=== PATIENT | female | born 1955 | race Caucasian/White ===

== ENCOUNTER 2018-05-17 17:43 | Outpatient (REF) | payer OTHER, SELFPAY ==
--- NOTE | 2018-05-17 16:40 | PAPFT_PTH ---
PATIENT: Promise Phelps LOC: [facility] U#:[id number] AGE/SX: 62/F ROOM: RE05/17/[address]: Dillon Leyva DO : 1955 BED: DIS: 05/17/2018 SPEC #: [id number] RECD: 05/20/18 12:55 STATUS: KELLY REEduardo #: [id number] DAO: 05/17/18 16:[address]: Dillon Leyva DEPT: [facility] Cytology RECD BY: Arleen Sahu Tissues: 1 - CX/ENDOCX FOR PAP SMEARS Procedures: PAP THIN PREP/UVM Screening HPV DNA PROBE Comments: [id number]
== END 2018-05-17 18:03 ==
LOC: LBN 17:43
PROVIDERS: PCP Emergency Medicine; Visit Provider Emergency Medicine
DX: Z12.4 Encounter for screening for malignant neoplasm of cervix (principal); Z11.51 Encounter for screening for human papillomavirus (HPV)
CPT/HCPCS: 88142; 87624

== ENCOUNTER 2018-07-30 09:00 | Outpatient (CLI) | payer OTHER, SELFPAY ==
[2018-07-30 11:27] LABS: HGB 14.4 g/dL (12.0-15.5); Mean Corp. HGB Concentration 33.5 g/dL (32.0-36.0); Mean Corpuscular Hemoglobin 30.7 pg (27.0-33.0); Mean Corpuscular Volume 91.7 fL (80-95); Mean Platelet Volume 10.5 fL (8.0-11.0); Platelet Count 240 x1000/uL (130-400); RBC 4.69 m/cumm (4.00-5.20); RBC Distribution Width 12.4 % (11.7-14.6); White Blood Cell Count 4.34 k/cumm (4.4-10.8)
[2018-07-30 12:38] LABS: BUN 15 mg/dL (7-18); CREATININE 0.69 mg/dL (0.55-1.02); Calcium 9.4 mg/dL (8.5-10.1); Chloride 103 mmol/L (98-107); Glucose 99 mg/dL (70-100); Potassium 4.6 mmol/L (3.5-5.1); Sodium 141 mmol/L (136-145)
== END 2018-07-30 09:20 ==
PROVIDERS: PCP Emergency Medicine; Visit Provider Family Medicine
DX: Z01.818 Encounter for other preprocedural examination (principal)
CPT/HCPCS: 36415; 80048; 85027

== ENCOUNTER 2019-12-19 11:35 | Observation (INO) | payer OTHER, SELFPAY ==
[2019-12-19] VITALS (42 sets, daily range): BP systolic 113–161; BP diastolic 68–98; PULSE 57–126; RESP 8–23; TEMP 36–36.5; O2SAT 95–100
--- NOTE | 2019-12-19 11:30 | RT.EKG_ITS ---
APPROVED REPORT Exam: Resting ECG Patient Location: E HR:66 bpm ECG Measurements Heart Rate 66 AXIS ID 169 P 74 QRSd 86 QRS 83 QT 388 T 55 QTc 407 Conclusion Sinus rhythm...normal P axis, V-rate 60- [address] dep II, III, aVF, V4-6 No stemi
--- NOTE | 2019-12-19 12:44 | NUR.NOTE ---
Nursing Note: PT reports that she is currently pain free. Pt states that she still feels mild discomfort in the left arm. Denied dizziness, weakness, N/V, SOB, and chest pain. Nitro ordered PRN if needed. MD Roy made aware that the PT is currently pain free.
[2019-12-19 12:50] LABS: Abs Immature Grans 0.01 10^3/uL (0.0-0.06); Absolute Basophil Count 0.02 10^3/uL (0.0-0.2); Absolute Eosinophil Count 0.05 10^3/uL (0.0-0.7); Absolute Lymphocyte Count 1.14 10^3/uL (1.2-3.4); Absolute Monocyte Count 0.34 10^3/uL (0.1-0.8); Absolute Neutrophil Count 3.22 10^3/uL (1.2-6.7); Basophils % 0.4; HCT 43.7 % (36.0-46.0); HGB 14.8 g/dL (11.2-15.7); Immature Grans % 0.2; Lymphocytes % 23.8; MCH 30.6 pg (27.0-33.0); MCHC 33.9 % (32.0-36.0); MCV 90.3 fL (80-95); MPV 10.5 fL (8.0-11.0); Monocytes % 7.1; Neutrophils % 67.5; Nucleated RBC 0 %; Platelet Count 244 10^3/uL (130-400); RBC 4.84 10^6/uL (3.93-5.22); RDW 11.9 % (11.7-14.6); RDW-SD 39.1 fL; WBC 4.78 10^3/uL (4.4-10.8)
[2019-12-19 12:58] LABS: Bilirubin Negative (Negative); Blood Trace-lysed (Negative); Clarity Clear (Clear); Glucose Negative (Negative); Ketones Trace mg/dL (Negative); Leukocyte Esterase Negative (Negative); Nitrite Negative (Negative); Specific Gravity 1.015 (1.005-1.025); Urobilinogen 0.2 EU/dL (Up TO 0.2)
--- NOTE | 2019-12-19 13:03 | ED.GENADUL_ITS ---
Discharge Plan Disposition Patient Disposition: [facility] INPATIENT Condition: Serious Discharge Details Chief Complaint: GenMedical Clinical Impression: Chest pain Admit Date/Time: 12/19/19 16:45 Admit Provider: Trenton Carey Attending Provider: Trenton Carey Primary Care Provider: Dillon Leyva ED Provider: Alok Roy Hospital Course Hospital Course: 64 y.o female with insignificant PMH reports to the ED after having an episode of chest pain leading to left shoulder discomfort and associated lightheadedness. Pain developed morning of admission lasting only 3 mins. Pain was located to central chest and wrapped around to her back and radiated to left neck. Pain was described as sharp and severe. She was admitted to inpatient obs with telemetry for further management. Overnight she did not have any Chest pain. Repeat EKG NSR at [address] elevation or ectopic beats, she is ambulatory without any chest pain. She feels great. Tsh normal, Lipid panel elevated, started on low dose atorvastatin with Asa 81 mg, will order outpatient stress test and follow up with PCP in 2 weeks. Denies Cp, SOB, N/V/D. Discharge Instructions Instructions: Chest Pain (GEN), Hyperlipidemia (DC) Additional Instructions: Outpatient stress test, they will call and schedule with you. Take aspirin 81 mg daily, take atorvastatin daily, you have elevated cholesterol, both have been prescribed to your pharmacy Exercise daily and follow heart healthy diet. Follow up with PCP in 1 week. Forms: Nursing Discharge Form Referrals: Dillon Leyva, DO [Primary Care Provider] - (Please call PCP on Sunday to make a follow up appointment for 1 week) Discharge Data Discharge Date/Time-TO BE ENTERED AT DEPARTURE: 12/19/19 17:43 Medical Decision Making 13:15 -- 64-year-old female presents with left shoulder discomfort after episode of chest pain earlier today with associated subsequent lightheadedness. Concern for ACS. Screening ECG was reviewed and interpreted by me: Sinus rhythm 66 bpm, no STEMI, ST depressions are noted inferior laterally that are subtle, leads II, III, aVF and V4 to V6. Given sudden onset of pain with radiation to the back and associated lightheadedness, consider aortic dissection. Plan to proceed to CTA of the chest. Nursing went into administer nitroglycerin and patient noted pain had resolved. Will hold nitro at this time. --Initial troponin negative. --CTA of the chest and abdomen interpreted by radiology: IMPRESSION: 1. No evidence of pulmonary embolism or other acute abnormality in the chest. 2. 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 --Patient reassessed and remains pain-free and asymptomatic. Repeat troponin at 3 to 4 hours negative and unchanged. Repeat ECG unchanged from prior with persistent subtle ST depressions noted. Given the story, atherosclerosis noted on CTA, plan to admit for trending troponin and rule out ACS. I spoke with the patient about this who is in agreement. I will give aspirin 325. I's called and spoke with Dr. Carey, on- call hospitalist and discussed ED presentation and course, he will accept the patient for admission. Care transition to Dr. Carey HPI General Mode of arrival: ambulatory . Date/Time Provider Initiated Documentation: 12/19/19 11:43 . Limitations to Documentation: no limitations . Information obtained by: patient . HPI Narrative: 64-year-old female with no significant medical problems presents with chief complaint of chest pain. Patient notes she suddenly developed chest pain this morning around 830. Pain lasted approximately 3 minutes. Pain was located to central chest and wrapped around to her back and also radiated into her left neck. Pain was described as sharp. Pain was severe. There were no modifiers. She did have some associated shortness of breath. Patient notes sometime after this morning she felt lightheaded and then also developed some achy pain in her left shoulder and left face. At this she currently has mild discomfort in her left shoulder. No leg swelling or calf pain. No fever or cough recently. symptoms started suddenly today and she has not experienced similar in the past. Related Data Home Medications Medication Instructions Recorded Confirmed echinacea 400 mg PO DAILY 12/18/12 12/26/19 multivitamin [Daily Multi-Vitamin] 1 ea PO DAILY 12/18/12 12/26/19 cyanocobalamin (vitamin B-12) 1,000 mcg PO DAILY 06/01/13 12/26/19 [Vitamin B-12] naproxen sodium [Aleve] 220 mg PO PRN PRN 01/31/16 12/26/19 Glucosamine Sulf-Chondroitin 2 tab PO DAILY 03/02/16 12/26/19 cholecalciferol (vitamin D3) 2 tab PO DAILY PRN 03/02/16 12/26/19 vitamin E 2 tab PO DAILY 03/02/16 12/26/19 ibuprofen 600 mg tablet 600 mg PO TID PRN #90 tab 08/15/19 12/26/19 aspirin 81 mg PO DAILY #30 tab 12/20/19 12/26/19 atorvastatin [Lipitor] 20 mg PO QPM #30 tab 12/20/19 12/26/19 Previous Rx's Medication Instructions Recorded ibuprofen 600 mg tablet 600 mg PO TID PRN #90 tab 08/15/19 aspirin 81 mg PO DAILY #30 tab 12/20/19 atorvastatin [Lipitor] 20 mg PO QPM #30 tab 12/20/19 Allergies Allergy/AdvReac Type Severity Reaction Status Date / Time Penicillins Allergy Verified 12/26/19 10:48 oxycodone AdvReac Severe N/V Verified 12/26/19 10:48 prednisone AdvReac Severe VOMITING Verified 12/26/19 10:48 codeine AdvReac Intermediate N/V Verified 12/26/19 10:48 hydrocodone AdvReac Intermediate N/V,FLIP Verified 12/26/19 10:48 OUT meperidine AdvReac Intermediate N/V Verified 12/26/19 10:48 tramadol AdvReac Intermediate dizzy, Verified 12/26/19 10:48 nausea YELLOW HORNET VENOM Allergy Severe Uncoded 12/26/19 10:48 General Stated Complaint: GenMedical MADELINE: 3 Review of Systems All systems reviewed & are unremarkable except as noted in HPI and below Constitutional Constitutional: Denies fever(s) Cardiovascular Cardiovascular: Reports as per HPI Respiratory Respiratory: Reports as per HPI [facility] Medical History (Updated 12/26/19 @ 11:29 by Dillon Leyva DO) Exertional chest pain (Acute) Surgical History Biopsy of breast Colonoscopy - MAC (04/09/17) Family History Mother , AGE 89 Hyperlipidemia Skin cancer Dementia Father , AGE 85 Stroke Prostate cancer Brother Skin cancer Maternal Grandfather No problems noted. Paternal Grandfather Diabetes Stroke Maternal Grandmother Stroke Paternal Grandmother No problems noted. Brother No problems noted. Son , AGE 20 MVA No problems noted. Daughter No problems noted. Social History Smoking/Tobacco Use Status: Never Second Hand Exposure: No Alcohol Intake: current Alcohol Intake frequency: a few times a week Alcohol type: wine Drug use: Never Substance use type: does not use Caregiver/Support person: No Household members: spouse Housing: house Pets and animals: No Sexually active: Yes Do you think of yourself as: straight/heterosexual Current gender identity: female Duration: 60-90 minutes/day Frequency: 1-2 times per week Harriett/Samaritan: Nondenominational Special harriett needs: No Do you feel safe at home: Yes Do you feel safe in your relationship?: Yes Exam Const General: cooperative and no acute distress HENMT Mouth: moist mucous membranes Eyes Conjunctivae: normal conjunctivae Sclera: normal sclerae Neck Neck: trachea midline and supple Resp Auscultation: clear to auscultation bilaterally, no rales, no rhonchi and no wheezes Cardio Jugular venous pressure: no JVD Rate: regular rate and not tachycardic Rhythm: regular rhythm GI Palpation: soft, not firm, no guarding, no masses, not rigid and nontender Skin General skin exam: no rashes or lesions noted Neuro General: patient alert, patient awake, patient oriented x3 and tone normal Extrem General: no calf tenderness and no edema Psych Appearance: grossly normal Mental Status: mental status grossly normal Speech and Movement: speech and movement normal Course Vital Signs Vital signs: Vital Signs Temperature 36.5 C 12/19/19 11:39 Pulse 70 12/19/19 11:39 Respiratory Rate 18 12/19/19 11:39 Blood Pressure 148/85 H 12/19/19 11:39 Pulse Oximetry 98 12/19/19 11:39 Temperature 36.5 C 12/19/19 11:39 Temperature Source Skin 12/19/19 11:39 Pulse 67 12/19/19 12:41 Pulse 72 12/19/19 12:42 Respiratory Rate 14 12/19/19 12:42 Respiratory Effort Non-Labored 12/19/19 11:44 Respiratory Depth Normal 12/19/19 11:44 Respiratory Pattern Normal 12/19/19 11:44 Blood Pressure 129/76 12/19/19 12:41 Blood Pressure Mean 86 08/21/20 12:41 Blood Pressure Position Sitting 12/19/19 11:39 Pulse Oximetry 95 12/19/19 12:42 Oxygen Delivery Method Room Air 12/19/19 11:39 Oxygen Flow Rate 0 12/19/19 11:39 Pain Level 0 12/19/19 11:39 Lab/Test Results Lab/Test Results: Laboratory Tests Range/Units 12/19/19 12/19/19 11:51 12:49 WBC (4.4-10.8) 10^3/uL 4.78 RBC (3.93-5.22) 10^6/uL 4.84 Hgb (11.2-15.7) g/dL 14.8 Hct (36.0-46.0) % 43.7 MCV (80-95) fL 90.3 MCH (27.0-33.0) pg 30.6 MCHC (32.0-36.0) % 33.9 RDW (11.7-14.6) % 11.9 Plt Count (130-400) 10^3/uL 244 MPV (8.0-11.0) fL 10.5 Immature Gran % 0.2 Neutrophils % 67.5 Lymphocytes % 23.8 Monocytes % 7.1 Eosinophils % 1.0 Basophils % 0.4 Nucleated RBC % % 0 Absolute Neutrophils (1.2-6.7) 10^3/uL 3.22 Absolute Lymphocytes (1.2-3.4) 10^3/uL 1.14 L Absolute Monocytes (0.1-0.8) 10^3/uL 0.34 Absolute Eosinophils (0.0-0.7) 10^3/uL 0.05 Absolute Basophils (0.0-0.2) 10^3/uL 0.02 Urine Color (Yellow) Yellow Urine Clarity (Clear) Clear Urine pH (5-8) 7.0 Ur Specific [place] (1.005-1.025) 1.015 Urine Protein (Negative) mg/dL Negative Urine Ketones (Negative) mg/dL Trace H Urine Blood (Negative) Trace-lysed H Urine Nitrite (Negative) Negative Urine Bilirubin (Negative) Negative Urine Urobilinogen (Up TO 0.2) EU/dL 0.2 Ur Leukocyte Esterase (Negative) Negative Urine Glucose (Negative) mg/dL Negative
[2019-12-19 13:09] LABS: WBC Negative HPF (0-5)
[2019-12-19 13:10] LABS: Bacteria Rare HPF (Negative); C & S Indicated? No; Casts Negative LPF (Negative); Crystals Negative HPF (Negative); Epithelial Cells Rare HPF (Negative); Mucus Negative (Negative); RBC 0-2 HPF (0-2)
[2019-12-19 13:18] LABS: D-Dimer 245 ng/mlFEU (<500)
[2019-12-19 13:41] LABS: ALT 26 U/L (14-59); AST 14 U/L (15-37); Albumin 3.9 g/dL (3.4-5.0); Alkaline Phosphatase 55 U/L (46-116); Anion Gap 6.6 mmol/L (3-11); BUN 12 mg/dL (7-18); Bilirubin, Total 0.3 mg/dL (0.2-1.0); CO2 30.4 mmol/L (21.0-32.0); CREATININE 0.61 mg/dL (0.55-1.02); Calcium 9.1 mg/dL (8.5-10.1); Chloride 105 mmol/L (98-107); Glucose 100 mg/dL (74-106); Potassium 4.4 mmol/L (3.5-5.1); Sodium 142 mmol/L (136-145); Total Protein 6.8 g/dL (6.4-8.2)
[2019-12-19 13:46] LABS: Troponin I < 0.05 ng/mL (<0.06)
--- NOTE | 2019-12-19 14:07 | DI.CT_ITS ---
EXAM: CT THORAX ABDOMEN CTA CLINICAL HISTORY: chest pain radiating to back. TECHNIQUE: Imaging Protocol: Axial CT angiography was performed with multi-slice acquisition and mu lti-planar and/or 3D reconstructions. CONTRAST MATERIAL: Intravenous: Omnipaque 350 Contrast volume:100 cc COMPARISON: CR RIGHT RIBS TO INCLUDE CXR from 11/19/2017 FINDINGS: CHEST: Pulmonary Arteries: No evidence of filling defect to suggest pulmonary emboli. Tracheobronchial tree: Patent where visualized. Mediastinum and Glo: No dominant adenopathy or fluid collection. Pulmonary parenchyma: No consolidation or dominant measurable mass. No architectural distortion. Pleura: No effusion or pneumothorax. Heart: The heart is not dilated. No coronary artery calcifications are seen. Aorta: Mild dilatation of the ascending aorta to 3.1 cm. No evidence of dissection. No significant atherosclerotic changes. Bones: Mild degenerative disc changes. ABDOMEN: Liver: Normal density. No measurable mass. Celiac axis: There is kinking vs a web like area of narrowing of the proximal celiac axis. This appe ars to be secondary to the median arcuate ligament on the right. There is normal caliber distally. No thrombus or dissection is seen. Portal, Superior Mesenteric, and Splenic Veins: Unremarkable. Gallbladder and Biliary Tract: No radiodense calculus or dilation. Pancreas: Normal density, no abnormal calcifications or inflammatory process. Spleen: Normal. Adrenals: No masses seen. Kidneys: Normal size, contour and axis. No radiodense stones or obstructive uropathy. No masses seen. Abdominal Aorta: Abdominal portion non-dilated. Mild atherosclerotic changes of the abdominal aorta. Bowel: No obstruction or bowel wall thickening. Appendix is unremarkable. Peritoneal Cavity: No ascites, collection or mesenteric inflammatory response. Lymph Nodes: Within normal limits. Bones: Degenerative disc changes at L5-S1. Soft Tissues: Unremarkable. IMPRESSION: 1. No evidence of pulmonary embolism or other acute abnormality in the chest. 2. 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 RADIATION DOSE DELIVERED: 607.56mGy.cm Total DLP DATA REPOSITORY: All CT scans at this facility are submitted to the National Radiology Data Registry (NRDR) Dose Index Registry (DIR) with the [employer] (ACR). RADIATION OPTIMIZATION: All CT scans at this facility use at least one of these dose optimization te chniques: automated exposure control; mA and/or kV adjustment per patient size (includes targeted exa ms where dose is matched to clinical indication); or iterative reconstruction.
[2019-12-19] MEDS: Normal Saline - Diluent 50 ML VIAL IV (14:08)
[2019-12-19] MEDS: Omnipaque 350 MG/ML 100 ML BTL IJ (14:09)
--- NOTE | 2019-12-19 14:45 | RT.EKG_ITS ---
APPROVED REPORT Exam: Resting ECG Patient Location: E HR:59 bpm ECG Measurements Heart Rate 59 AXIS SD 178 P 58 QRSd 78 QRS 86 QT 390 T 58 QTc 386 Conclusion Sinus bradycardia...rate< [address] dep inf lat
[2019-12-19 15:29] LABS: Troponin I < 0.05 ng/mL (<0.06)
[2019-12-19] MEDS: Aspirin 325 MG TAB PO (16:40)
--- NOTE | 2019-12-19 16:50 | W.PM.HP.N ---
Date of service: 12/19/19 Time of Service: 16:50 Assessment and Plan Assessment and plan (1) Chest pain: Start date: 12/19/19 Start time: 16:57 Status: Acute Assessment and plan: Chest pain on set this am lasting approx 3 mins with sharp severe pain, extending to left shoulder. Will admit on teley to /s obs, trend troponins, monitor for CP. Possible stress on Sunday, If troponins continue to be negative, patient ambulates Chest pain free and no other associated symptoms, possible discharge with outpatient stress. Will check lipid panel, A1c, tsh in am. Denies Cp at this time Qualifiers: Chest pain type: other chest pain Qualified Code(s): R07.89 - Other chest pain History of Present Illness History of Present Illness Chief Complaint: Chest Pain Narrative: 64 y.o female with insignificant PMH reports to the ED after having an episode of chest pain leading to left shoulder discomfort and associated lightheadedness. Pain developed morning of admission lasting only 3 mins. Pain was located to central chest and wrapped around to her back and radiated to left neck. Pain was described as sharp and severe. She has been asked to be admitted to / on telemetry for further management. Labs for am will include lipid panel, A1c, troponin have been negative so far. EKG SR at [address] depressions noted inferior and subtle, no ectopic beats. Lab work unremarkable, CTA no evidence of PE or other acute abnormality, narrowing of pormxial celiac axis, likely secondary to right median arcuate ligament. Review of Systems All systems reviewed & are unremarkable except as noted in HPI and below PFSH Surgical History Biopsy of breast Colonoscopy - MAC (04/09/17) Family History Mother , AGE 89 Hyperlipidemia Skin cancer Dementia Father , AGE 85 Stroke Prostate cancer Brother Skin cancer Maternal Grandfather No problems noted. Paternal Grandfather Diabetes Stroke Maternal Grandmother Stroke Paternal Grandmother No problems noted. Brother No problems noted. Son , AGE 20 MVA No problems noted. Daughter No problems noted. Social History Smoking/Tobacco Use Status: Never Second Hand Exposure: No Alcohol Intake: current Alcohol Intake frequency: a few times a week Alcohol type: wine Drug use: Never Substance use type: does not use Caregiver/Support person: No Household members: spouse Housing: house Pets and animals: No Sexually active: Yes Do you think of yourself as: straight/heterosexual Current gender identity: female Duration: 60-90 minutes/day Frequency: 1-2 times per week Harriett/Protestant: Orthodoxy Special harriett needs: No Do you feel safe at home: Yes Do you feel safe in your relationship?: Yes Meds Home Medications and Allergies Home Medications Medication Instructions Recorded Confirmed Type echinacea 400 mg PO DAILY 12/18/12 12/19/19 History multivitamin [Daily Multi-Vitamin] 1 ea PO DAILY 12/18/12 12/19/19 History cyanocobalamin (vitamin B-12) 1,000 mcg PO DAILY 06/01/13 12/19/19 History [Vitamin B-12] naproxen sodium [Aleve] 220 mg PO PRN PRN 01/31/16 12/19/19 History Glucosamine Sulf-Chondroitin 2 tab PO DAILY 03/02/16 12/19/19 History cholecalciferol (vitamin D3) 2 tab PO DAILY PRN 03/02/16 12/19/19 History vitamin E 2 tab PO DAILY 03/02/16 12/19/19 History ibuprofen 600 mg tablet 600 mg PO TID PRN #90 tab 08/15/19 12/19/19 Rx Allergies Allergy/AdvReac Type Severity Reaction Status Date / Time Penicillins Allergy Verified 12/19/19 11:48 oxycodone AdvReac Severe N/V Verified 12/19/19 11:48 prednisone AdvReac Severe VOMITING Verified 12/19/19 11:48 codeine AdvReac Intermediate N/V Verified 12/19/19 11:48 hydrocodone AdvReac Intermediate N/V,FLIP Verified 12/19/19 11:48 OUT meperidine AdvReac Intermediate N/V Verified 12/19/19 11:48 tramadol AdvReac Intermediate dizzy, Verified 12/19/19 11:48 nausea YELLOW HORNET VENOM Allergy Severe Uncoded 12/19/19 11:48 Exam Const General: cooperative, healthy appearing, comfortable and no acute distress Nutritional Appearance: thin Orientation: alert, awake and oriented x3 HENMT Head: normal to inspection, normocephalic and atraumatic Mouth: moist mucous membranes Eyes General: appearance normal, both eyes and all related structures Pupils: PERRL Neck Neck: no JVD Carotids: normal carotid upstroke Lymphatic: no lymphadenopathy noted and no lymphedema noted Chest Chest: normal inspection of the chest Resp Effort & Inspection: normal respiratory effort Auscultation: clear to auscultation bilaterally Cardio Jugular venous pressure: no JVD Rate: regular rate Rhythm: regular rhythm Heart Sounds: murmur GI Inspection: normal to inspection Auscultation: normal bowel sounds General: deferred Skin General skin exam: no rashes or lesions noted Neuro General: patient alert, patient awake and patient oriented x3 Cognition: normal cognition Extrem General: normal to inspection, full ROM and no clubbing, cyanosis or edema Psych Appearance: grossly normal and well kempt Mental Status: mental status grossly normal Speech and Movement: speech and movement normal Results Labs Result diagrams: 12/19/19 11:51 12/19/19 13:19 Labs: Laboratory Results - last 24 hr 12/19/19 12/19/19 12/19/19 11:51 11:51 12:49 WBC 4.78 RBC 4.84 Hgb 14.8 Hct 43.7 MCV 90.3 MCH 30.6 MCHC 33.9 RDW 11.9 Plt Count 244 MPV 10.5 Immature Gran % 0.2 Neutrophils % 67.5 Lymphocytes % 23.8 Monocytes % 7.1 Eosinophils % 1.0 Basophils % 0.4 Nucleated RBC % 0 Absolute Neutrophils 3.22 Absolute Lymphocytes 1.14 L Absolute Monocytes 0.34 Absolute Eosinophils 0.05 Absolute Basophils 0.02 D-Dimer 245 Sodium Potassium Chloride Carbon Dioxide Anion Gap BUN Creatinine Estimated GFR/1.73 m2 Glucose Calcium Magnesium Total Bilirubin AST ALT Alkaline Phosphatase Troponin I Total Protein Albumin Urine Color Yellow Urine Clarity Clear Urine pH 7.0 Ur Specific [place] 1.015 Urine Protein Negative Urine Ketones Trace H Urine Blood Trace-lysed H Urine Nitrite Negative Urine Bilirubin Negative Urine Urobilinogen 0.2 Ur Leukocyte Esterase Negative Urine RBC 0-2 Urine WBC Negative Ur Epithelial Cells Rare Urine Crystals Negative Urine Bacteria Rare Urine Casts Negative Urine Mucus Negative Ur Culture Indicated? No Urine Glucose Negative 12/19/19 12/19/19 12/19/19 13:19 15:00 16:18 WBC RBC Hgb Hct MCV MCH MCHC RDW Plt Count MPV Immature Gran % Neutrophils % Lymphocytes % Monocytes % Eosinophils % Basophils % Nucleated RBC % Absolute Neutrophils Absolute Lymphocytes Absolute Monocytes Absolute Eosinophils Absolute Basophils D-Dimer Sodium 142 Potassium 4.4 Chloride 105 Carbon Dioxide 30.4 Anion Gap 6.6 BUN 12 Creatinine 0.61 Estimated GFR/1.73 m2 >= 60.00 Glucose 100 Calcium 9.1 Magnesium 2.0 Total Bilirubin 0.3 AST 14 L ALT 26 Alkaline Phosphatase 55 Troponin I < 0.05 < 0.05 Cancelled Total Protein 6.8 Albumin 3.9 Urine Color Urine Clarity Urine pH Ur Specific [place] Urine Protein Urine Ketones Urine Blood Urine Nitrite Urine Bilirubin Urine Urobilinogen Ur Leukocyte Esterase Urine RBC Urine WBC Ur Epithelial Cells Urine Crystals Urine Bacteria Urine Casts Urine Mucus Ur Culture Indicated? Urine Glucose Last Vital Signs Temp 36.5 C 12/19/19 11:39 Pulse 64 12/19/19 16:01 Resp 18 12/19/19 16:20 BP 121/71 12/19/19 16:01 Pulse Ox 98 12/19/19 14:57 COVID-19 Screening Have you,or household,traveled outside [place] in last 14 days?: No Had IN PERSON contact w/suspected or confirmed C-19 person: No
[2019-12-19] MEDS: Enoxaparin 40 MG/0.4 ML SYR SC (18:20)
[2019-12-19 20:44] LABS: Troponin I < 0.05 ng/mL (<0.06)
--- NOTE | 2019-12-20 | RT.EKG_ITS ---
APPROVED REPORT Exam: Resting ECG Patient Location: I HR:63 bpm ECG Measurements Heart Rate 63 AXIS AK 184 P 57 QRSd 78 QRS 77 QT 376 T 67 QTc 385 Conclusion Sinus rhythm...normal P axis, V-rate 60- 99
[2019-12-20 01:00] VITALS: BP 124/72; PULSE 57; RESP 16; TEMP 36.8; O2SAT 97
[2019-12-20 03:39] VITALS: BP 121/74; PULSE 60; RESP 16; TEMP 36.5; O2SAT 98
[2019-12-20 07:38] VITALS: BP 137/75; PULSE 66; RESP 17; TEMP 37.2; O2SAT 96
[2019-12-20 07:38] LABS: Abs Immature Grans 0.01 10^3/uL (0.0-0.06); Absolute Basophil Count 0.02 10^3/uL (0.0-0.2); Absolute Eosinophil Count 0.06 10^3/uL (0.0-0.7); Absolute Lymphocyte Count 1.54 10^3/uL (1.2-3.4); Absolute Monocyte Count 0.35 10^3/uL (0.1-0.8); Absolute Neutrophil Count 2.89 10^3/uL (1.2-6.7); Basophils % 0.4; Eosinophils % 1.2; HGB 14.4 g/dL (11.2-15.7); Immature Grans % 0.2; Lymphocytes % 31.6; MCH 30.8 pg (27.0-33.0); MCHC 33.5 % (32.0-36.0); MCV 91.9 fL (80-95); MPV 10.2 fL (8.0-11.0); Monocytes % 7.2; Neutrophils % 59.4; Nucleated RBC 0 %; Platelet Count 229 10^3/uL (130-400); RBC 4.68 10^6/uL (3.93-5.22); RDW 11.9 % (11.7-14.6); RDW-SD 39.8 fL; WBC 4.87 10^3/uL (4.4-10.8)
[2019-12-20 07:53] LABS: Anion Gap 8.6 mmol/L (3-11); BUN 16 mg/dL (7-18); CO2 27.4 mmol/L (21.0-32.0); CREATININE 0.59 mg/dL (0.55-1.02); Calcium 8.9 mg/dL (8.5-10.1); Chloride 105 mmol/L (98-107); Glucose 94 mg/dL (74-106); Sodium 141 mmol/L (136-145)
[2019-12-20 08:06] LABS: Calculated LDL 156 mg/dL (<100); Cholesterol 243 mg/dL (<200); HDL Cholesterol 71 mg/dL (40-60); Magnesium 2.2 mg/dL (1.8-2.4); TSH 2.81 uIU/mL (0.36-3.74); Triglyceride 84 mg/dL (<150)
[2019-12-20] MEDS: Aspirin 81 MG CHEW PO (08:31)
[2019-12-20] MEDS: Cyanocobalamin 500 MCG TAB 1000 MCG PO (08:31)
[2019-12-20] MEDS: Cholecalciferol (Vitamin D3) 1,000 UNIT TAB 1000 UNITS PO (08:31)
[2019-12-20 08:55] LABS: Hemoglobin A1C 5.6 % (3.8-5.6)
--- NOTE | 2019-12-20 10:10 | DSE_ITS ---
Date of service: 12/20/19 Time of Service: 10:10 DS: Diagnosis Discharge Diagnosis (1) Chest pain: Start date: 12/20/19 Start time: 10:10 Status: Resolved Asessment and Plan: Patient has had no CP overnight. NSR by repeat EKG with no ST elevation, ectopic beats. She feels better and is ready to go home. TSH normal, Cholesterol elevated at 243 with LDL at 156, will start low dose statin with 81 mg aspirin. Ambulatory walking without any SOB or Chest pain. She will have an outpatient stress test and follow up with PCP in 2 weeks. She denies CP, SOB, N/v/D Discharge Plan Disposition Patient Disposition: HOME Condition: Serious Discharge Details Chief Complaint: GenMedical Clinical Impression: Chest pain Reason For Visit: CHEST PAIN Admit Date/Time: 12/19/19 16:45 Admit Provider: Trenton Carey Attending Provider: Trenton Carey Primary Care Provider: Dillon Leyva ED Provider: Alok Roy [facility] Course Hospital Course: 64 y.o female with insignificant PMH reports to the ED after having an episode of chest pain leading to left shoulder discomfort and associated lightheadedness. Pain developed morning of admission lasting only 3 mins. Pain was located to central chest and wrapped around to her back and radiated to left neck. Pain was described as sharp and severe. She was admitted to inpatient obs with telemetry for further management. Overnight she did not have any Chest pain. Repeat EKG NSR at [address] elevation or ectopic beats, she is ambulatory without any chest pain. She feels great. Tsh normal, Lipid panel elevated, started on low dose atorvastatin with Asa 81 mg, will order outpatient stress test and follow up with PCP in 2 weeks. Denies Cp, SOB, N/V/D. Home Meds and New Rx's Prescriptions: New atorvastatin [Lipitor] 20 mg Tablet 20 mg PO QPM Qty: 30 RF: 0 aspirin 81 mg Tablet,Chewable 81 mg PO DAILY Qty: 30 RF: 0 Continued multivitamin [Daily Multi-Vitamin] 1 EACH tablet 1 ea PO DAILY RF: 0 echinacea 400 MG capsule 400 mg PO DAILY RF: 0 naproxen sodium [Aleve] 220 MG tablet 220 mg PO PRN PRNRF: 0 ibuprofen 600 mg tablet 600 mg PO TID PRN (Reason: pain) Qty: 90 RF: 2 cyanocobalamin (vitamin B-12) [Vitamin B-12] 1,000 MCG tablet 1,000 mcg PO DAILY RF: 0 vitamin E 400 UNIT capsule 2 tab PO DAILY RF: 0 cholecalciferol (vitamin D3) 1,000 UNITS tablet 2 tab PO DAILY PRNRF: 0 Glucosamine Sulf-Chondroitin 1 EACH capsule 2 tab PO DAILY RF: 0 Discharge Instructions Instructions: Chest Pain (GEN), Hyperlipidemia (DC) Additional Instructions: Outpatient stress test, they will call and schedule with you. Take aspirin 81 mg daily, take atorvastatin daily, you have elevated cholesterol, both have been prescribed to your pharmacy Exercise daily and follow heart healthy diet. Follow up with PCP in 1 week. Activity:: Activity as Tolerated Equipment/Supplies:: No Equipment Needed Diet:: As Tolerated Discharge Orders Discharge Orders: Discharge Order (Routine); Ordered 12/20/19 Ordered By: Anayeli Russo DS: Summary Status at Discharge Functional status at discharge: independent ambulation Overall status at discharge: patient is back to baseline Mental Status: mental status grossly normal Speech and Movement: speech and movement normal Mood: congruent mood Affect: normal affect Exam Const General: cooperative, healthy appearing, comfortable and no acute distress Nutritional Appearance: thin Orientation: alert, awake and oriented x3 HENMT Head: normal to inspection, normocephalic and atraumatic Mouth: moist mucous membranes Eyes General: appearance normal, both eyes and all related structures Pupils: PERRL Neck Neck: no JVD Carotids: normal carotid upstroke Lymphatic: no lymphadenopathy noted and no lymphedema noted Chest Chest: normal inspection of the chest Resp Effort & Inspection: normal respiratory effort Auscultation: clear to auscultation bilaterally Cardio Jugular venous pressure: no JVD Rate: regular rate Rhythm: regular rhythm Heart Sounds: murmur GI Inspection: normal to inspection Auscultation: normal bowel sounds General: deferred Skin General skin exam: no rashes or lesions noted Neuro General: patient alert, patient awake and patient oriented x3 Cognition: normal cognition Extrem General: normal to inspection, full ROM and no clubbing, cyanosis or edema Psych Appearance: grossly normal and well kempt Mental Status: mental status grossly normal Speech and Movement: speech and movement normal Mood: congruent mood Affect: normal affect DS: Data Vitals/I&O Vitals and I&O: Vital Signs Temperature 37.2 C 08/22/20 07:38 Temperature Source Tympanic 12/20/19 07:38 Pulse 66 12/20/19 07:38 Pulse Rhythm Regular 12/19/19 20:00 Pulse 74 12/19/19 16:20 Respiratory Rate 17 12/20/19 07:38 Respiratory Effort Non-Labored 12/19/19 20:00 Respiratory Depth Normal 12/19/19 20:00 Respiratory Pattern Normal 12/19/19 20:00 Blood Pressure 137/75 12/20/19 07:38 Blood Pressure Mean 82 12/19/19 16:01 Blood Pressure Position Sitting 12/19/19 11:39 Pulse Oximetry 96 12/20/19 07:38 Oxygen Delivery Method Room Air 12/20/19 07:38 Oxygen Flow Rate 0 12/20/19 07:38 Pain Level 0 12/20/19 07:38 Comment 12/20/19 07:38 Intake & Output 12/19/19 12/19/19 12/20/19 11:59 23:59 11:59 Intake Total 10 / 560 550 / 560 Output Total 300 / 300 400 / 400 Balance 10 / 260 250 / 260 -400 / -400 Weight 58.967 kg 58.967 kg Intake: IV 10 / 10 Oral 550 / 550 Output: Urine 300 / 300 400 / 400 Other: Urine Color Yellow Straw Urine Appearance Clear Clear Urine Odor Normal Normal Comment Void x1 in the toilet. Void x1 in the toilet. Voiding Methods Toilet Toilet Data Completed and Pending Completed studies during hospitalization [Text1]: CHEST: Pulmonary Arteries: No evidence of filling defect to suggest pulmonary emboli. Tracheobronchial tree: Patent where visualized. Mediastinum and Glo: No dominant adenopathy or fluid collection. Pulmonary parenchyma: No consolidation or dominant measurable mass. No architectural distortion. Pleura: No effusion or pneumothorax. Heart: The heart is not dilated. No coronary artery calcifications are seen. Aorta: Mild dilatation of the ascending aorta to 3.1 cm. No evidence of dis section. No significant atherosclerotic changes. Bones: Mild degenerative disc changes. ABDOMEN: Liver: Normal density. No measurable mass. Celiac axis: There is kinking vs a web like area of narrowing of the proximal celiac axis. This appears to be secondary to the median arcuate ligament on the right. There is normal caliber distally. No thrombus or dissection is seen. Portal, Superior Mesenteric, and Splenic Veins: Unremarkable. Gallbladder and Biliary Tract: No radiodense calculus or dilation. Pancreas: Normal density, no abnormal calcifications or inflammatory process. Spleen: Normal. Adrenals: No masses seen. Kidneys: Normal size, contour and axis. No radiodense stones or obstructive uropathy. No masses seen. Abdominal Aorta: Abdominal portion non-dilated. Mild atherosclerotic changes of the abdominal aorta. Bowel: No obstruction or bowel wall thickening. Appendix is unremarkable. Peritoneal Cavity: No ascites, collection or mesenteric inflammatory response. Lymph Nodes: Within normal limits. Bones: Degenerative disc changes at L5-S1. Soft Tissues: Unremarkable. IMPRESSION: 1. No evidence of pulmonary embolism or other acute abnormality in the chest. 2. 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 Labs on day of discharge: Labs from last 24 hours 12/20/19 12/20/19 12/20/19 06:45 06:45 06:43 WBC 4.87 RBC 4.68 Hgb 14.4 Hct 43.0 MCV 91.9 MCH 30.8 MCHC 33.5 RDW 11.9 Plt Count 229 MPV 10.2 Immature Gran % 0.2 Neutrophils % 59.4 Lymphocytes % 31.6 Monocytes % 7.2 Eosinophils % 1.2 Basophils % 0.4 Nucleated RBC % 0 Absolute Neutrophils 2.89 Absolute Lymphocytes 1.54 Absolute Monocytes 0.35 Absolute Eosinophils 0.06 Absolute Basophils 0.02 D-Dimer Sodium 141 Potassium 4.0 Chloride 105 Carbon Dioxide 27.4 Anion Gap 8.6 BUN 16 Creatinine 0.59 Estimated GFR/1.73 m2 >= 60.00 Glucose 94 Hemoglobin A1c Calcium 8.9 Magnesium 2.2 Total Bilirubin AST ALT Alkaline Phosphatase Troponin I Total Protein Albumin Triglycerides 84 Total Cholesterol 243 H LDL Cholesterol, Calc 156 H HDL Cholesterol 71 TSH 2.81 Urine Color Urine Clarity Urine pH Ur Specific [place] Urine Protein Urine Ketones Urine Blood Urine Nitrite Urine Bilirubin Urine Urobilinogen Ur Leukocyte Esterase Urine RBC Urine WBC Ur Epithelial Cells Urine Crystals Urine Bacteria Urine Casts Urine Mucus Ur Culture Indicated? Urine Glucose COVID-19 PCR Nasopharyn COVID-19 PCR Ref Test Perform Site 12/20/19 12/19/19 12/19/19 06:43 20:09 17:30 WBC RBC Hgb Hct MCV MCH MCHC RDW Plt Count MPV Immature Gran % Neutrophils % Lymphocytes % Monocytes % Eosinophils % Basophils % Nucleated RBC % Absolute Neutrophils Absolute Lymphocytes Absolute Monocytes Absolute Eosinophils Absolute Basophils D-Dimer Sodium Potassium Chloride Carbon Dioxide Anion Gap BUN Creatinine Estimated GFR/1.73 m2 Glucose Hemoglobin A1c 5.6 Calcium Magnesium Total Bilirubin AST ALT Alkaline Phosphatase Troponin I < 0.05 Total Protein Albumin Triglycerides Total Cholesterol LDL Cholesterol, Calc HDL Cholesterol TSH Urine Color Urine Clarity Urine pH Ur Specific [place] Urine Protein Urine Ketones Urine Blood Urine Nitrite Urine Bilirubin Urine Urobilinogen Ur Leukocyte Esterase Urine RBC Urine WBC Ur Epithelial Cells Urine Crystals Urine Bacteria Urine Casts Urine Mucus Ur Culture Indicated? Urine Glucose COVID-19 PCR Pending Nasopharyn COVID-19 PCR Pending Ref Test Perform Site Pending 12/19/19 12/19/19 12/19/19 16:18 15:00 13:19 WBC RBC Hgb Hct MCV MCH MCHC RDW Plt Count MPV Immature Gran % Neutrophils % Lymphocytes % Monocytes % Eosinophils % Basophils % Nucleated RBC % Absolute Neutrophils Absolute Lymphocytes Absolute Monocytes Absolute Eosinophils Absolute Basophils D-Dimer Sodium 142 Potassium 4.4 Chloride 105 Carbon Dioxide 30.4 Anion Gap 6.6 BUN 12 Creatinine 0.61 Estimated GFR/1.73 m2 >= 60.00 Glucose 100 Hemoglobin A1c Calcium 9.1 Magnesium 2.0 Total Bilirubin 0.3 AST 14 L ALT 26 Alkaline Phosphatase 55 Troponin I Cancelled < 0.05 < 0.05 Total Protein 6.8 Albumin 3.9 Triglycerides Total Cholesterol LDL Cholesterol, Calc HDL Cholesterol TSH Urine Color Urine Clarity Urine pH Ur Specific [place] Urine Protein Urine Ketones Urine Blood Urine Nitrite Urine Bilirubin Urine Urobilinogen Ur Leukocyte Esterase Urine RBC Urine WBC Ur Epithelial Cells Urine Crystals Urine Bacteria Urine Casts Urine Mucus Ur Culture Indicated? Urine Glucose COVID-19 PCR Nasopharyn COVID-19 PCR Ref Test Perform Site 12/19/19 12/19/19 12/19/19 12:49 11:51 11:51 WBC 4.78 RBC 4.84 Hgb 14.8 Hct 43.7 MCV 90.3 MCH 30.6 MCHC 33.9 RDW 11.9 Plt Count 244 MPV 10.5 Immature Gran % 0.2 Neutrophils % 67.5 Lymphocytes % 23.8 Monocytes % 7.1 Eosinophils % 1.0 Basophils % 0.4 Nucleated RBC % 0 Absolute Neutrophils 3.22 Absolute Lymphocytes 1.14 L Absolute Monocytes 0.34 Absolute Eosinophils 0.05 Absolute Basophils 0.02 D-Dimer 245 Sodium Potassium Chloride Carbon Dioxide Anion Gap BUN Creatinine Estimated GFR/1.73 m2 Glucose Hemoglobin A1c Calcium Magnesium Total Bilirubin AST ALT Alkaline Phosphatase Troponin I Total Protein Albumin Triglycerides Total Cholesterol LDL Cholesterol, Calc HDL Cholesterol TSH Urine Color Yellow Urine Clarity Clear Urine pH 7.0 Ur Specific [place] 1.015 Urine Protein Negative Urine Ketones Trace H Urine Blood Trace-lysed H Urine Nitrite Negative Urine Bilirubin Negative Urine Urobilinogen 0.2 Ur Leukocyte Esterase Negative Urine RBC 0-2 Urine WBC Negative Ur Epithelial Cells Rare Urine Crystals Negative Urine Bacteria Rare Urine Casts Negative Urine Mucus Negative Ur Culture Indicated? No Urine Glucose Negative COVID-19 PCR Nasopharyn COVID-19 PCR Ref Test Perform Site [facility] Surgical History Biopsy of breast Colonoscopy - [facility] (04/09/17) Family History Mother , AGE 89 Hyperlipidemia Skin cancer Dementia Father , AGE 85 Stroke Prostate cancer Brother Skin cancer Maternal Grandfather No problems noted. Paternal Grandfather Diabetes Stroke Maternal Grandmother Stroke Paternal Grandmother No problems noted. Brother No problems noted. Son , AGE 20 MVA No problems noted. Daughter No problems noted. Social History Smoking/Tobacco Use Status: Never Second Hand Exposure: No Alcohol Intake: current Alcohol Intake frequency: a few times a week Alcohol type: wine Drug use: Never Substance use type: does not use Caregiver/Support person: No Household members: spouse Housing: house Pets and animals: No Sexually active: Yes Do you think of yourself as: straight/heterosexual Current gender identity: female Duration: 60-90 minutes/day Frequency: 1-2 times per week Harriett/Anabaptism: Druze Special harriett needs: No Do you feel safe at home: Yes Do you feel safe in your relationship?: Yes
[2019-12-21 11:35] LABS: COVID-19 RT-PCR UVMMC Result Negative (Negative)
== END 2019-12-20 10:56 | disposition home or self-care (01) ==
LOC: ER 16:37 → MS 17:45
PROVIDERS: Nurse Practitioner Family; Admitting Provider Family Medicine; Emergency Provider Student in an Organized Health Care Education/Training Program; PCP Emergency Medicine; Visit Provider Family Medicine
DX: R07.89 Other chest pain (principal); R42 Dizziness and giddiness; Z11.59 Encounter for screening for other viral diseases
CPT/HCPCS: 36415; 71275; 74175; 80048; 80053; 80061; 93005; 99217; 99220; 99285; J1650; U0003; 81003; 81015; 83036; 83735; 84443; 84484; 85025; 85379; 93010; 99284; J3490

== ENCOUNTER 2020-03-11 07:06 | Outpatient (CLI) | payer OTHER, SELFPAY ==
[2020-03-12 15:03] LABS: SARS-CoV-2 RNA Not Detected (NotDetected); SARS-CoV-2 RNA Source Nasal/Nares
== END 2020-03-11 07:26 ==
PROVIDERS: PCP Emergency Medicine; Visit Provider Surgery
DX: Z11.59 Encounter for screening for other viral diseases (principal); Z01.818 Encounter for other preprocedural examination
CPT/HCPCS: U0003

== ENCOUNTER 2020-03-15 09:07 | Day surgery (SDC) | payer OTHER, SELFPAY ==
--- NOTE | 2020-03-15 06:47 | COLE_ITS ---
Date of service: 03/15/20 Time of Service: 10:50 Colonoscopy Report Date of procedure: 03/15/20 Pre-op diagnosis general: Colon Cancer Screening, hx of polyps Post-op diagnosis procedure note: other (polyps, ? lipoma) Procedure: Colonoscopy with polypectomy by cold forceps and hot snare Surgeon: Carlita Berry Anesthesia proc note operative: other (General/ASA 2/Charlotte Fatima, WHITNEY) Estimated blood loss (mL): 5 Pathology: other (proximal sigmoid polyp, distal sigmoid polyp, rectal Lipoma?) Complications: None Disposition: same day Indications: The patient is here for Colonoscopy pre-op. Her last screening was in 2017, which was remarkable for tubullovillous polyp x 1 and tubular adenomatous polyp x1. She has no family history of colon cancer. She has not had any bowel habit changes. -Discussed colonoscopy bowel prep as well as the procedure. Discussed possible complications of the procedure to include bleeding, pain, perforation, missed small lesion/polyp, sore throat, aspiration and adverse reaction to the me dications. Questions were answered to patient?s satisfaction. No guarantees were implied or given. Prep: Miralax/Dulcolax Procedure Start Time: 10:50 Procedure End Time: 11:22 Retraction Time: 27 minutes Findings: 2 sessile polyps in the sigmoid colon 3 tattooed areas in the rectum. No regrowth of polyps appreciated. One had what looked like a lipoma under the mucosa. Procedure Description: After informed consent was obtained the patient was taken to the procedure room and placed in a left decubitous position. Monitors were applied and a time out was done. The patients name, date of , procedure, allergies to medications and metal in their body was reviewed. The patient was then sedated. Once sedated and comfortable a rectal exam was done. External exam was normal. Internal exam revealed a normal sphincter tone and no palpable masses. The scope was then introduced and retro-flexed. No internal hemorrhoids were identified. The scope was then advanced to the cecum without difficulty. The ileocecal valve and appendiceal orifice were identified. The prep was good. The scope was then slowly retracted over 27 minutes back into the rectum. Polyps were removed with cold forceps in the proximal sigmoid colon and with a combination of hot snare and cold forceps in the distal sigmoid colon. Under one of the tattooed areas there was a soft, well circumscribed mass. This looked like a lipoma. The overlying mucosa looked normal. 2 other tattooed areas were noted in the rectum and there were no recurrance of polyps appreciated. The scope was removed and the patient was woken up and taken back to Same day surgery in stable condition. The patient tolerated the procedure well and there were no immediate complications. Follow up: The patient should follow up in 3-5 years unless they develop changes in bowel habits or other new gastrointestinal complaints.
--- NOTE | 2020-03-15 06:49 | W.PM.DSUDISC ---
Discharge Plan Disposition Patient Disposition: HOME Condition: Good Discharge Details Reason For Visit: Colonoscopy Attending Provider: Carlita Berry Primary Care Provider: Dillon Leyva Home Meds and New Rx's Prescriptions: Continued multivitamin [Daily Multi-Vitamin] 1 EACH tablet 1 ea PO DAILY RF: 0 echinacea 400 MG capsule 400 mg PO DAILY RF: 0 naproxen sodium [Aleve] 220 MG tablet 220 mg PO PRN PRNRF: 0 ibuprofen 600 mg tablet 600 mg PO TID PRN (Reason: pain) Qty: 90 RF: 2 cyanocobalamin (vitamin B-12) [Vitamin B-12] 1,000 MCG tablet 1,000 mcg PO DAILY RF: 0 vitamin E 400 UNIT capsule 2 tab PO DAILY RF: 0 cholecalciferol (vitamin D3) 1,000 UNITS tablet 2 tab PO DAILY PRNRF: 0 Glucosamine Sulf-Chondroitin 1 EACH capsule 2 tab PO DAILY RF: 0 Discontinued polyethylene glycol 3350 17 gram/dose powder 238 g PO ONCE Qty: 238 RF: 0 bisacodyl [Dulcolax (bisacodyl)] 5 mg tablet,delayed release (DR/EC) 5 mg PO ONCE Qty: 4 RF: 0 Discharge Instructions Instructions: Colorectal Polyps (DC) Additional Instructions: Findings: 2 flat polyps. Both looked pre-malignant like at you last colonoscopy Follow up: 3-5 years depending on final pathology Please call if you develop: fevers >101.5 Nausea or Vomiting Abdominal pain that is not transient DAY SURGERY UNIT POST ENDOSCOPY INSTRUCTIONS 1. Because there will be medication in your system for the next 24 hours, you may feel a little sleepy. Your coordination will be affected. Therefore: a. Do not drive or operate dangerous equipment for 24 hours. b. Do not drink alcohol beverages for 24 hours (not even beer). c. Plan to go home and rest for the day. 2. Generally there are no restrictions on your activity after a day or so has gone by, but you may feel a bit fatigued for a few days. 3 After you arrive home you may have a light meal and return to a normal diet as you can tolerate it without feeling sick to your stomach. 4. After surgery, you may feel pain or discomfort. This should be only transient, but if it persists please contact your doctor. 5. If there are any questions regarding the findings of your procedure, please feel free to contact your doctor. 6. If you are unable to contact your doctor with a problem, contact the hospital at [phone]. 7. Continue all your regular medications unless directed otherwise. I understand the above instructions and have no questions. Signature of Patient or Responsible Adult Escort Date/Time Name of Responsible Adult Escort Signature of Nurse Date/Time Activity:: Activity as Tolerated Diet:: As Tolerated Discharge Orders Discharge Orders: Discharge Order (Routine); Ordered 03/15/20 Ordered By: Carlita Berry
[2020-03-15 09:20] VITALS: BP 112/79; PULSE 76; RESP 16; TEMP 36.3; O2SAT 99
[2020-03-15] MEDS: Lactated Ringers 1,000 ML 80 ML IV (09:45)
--- NOTE | 2020-03-15 11:00 | BOWEL_PTH ---
PATIENT: Promise Phelps LOC: [facility] U#:[id number] AGE/SX: 64/F ROOM: RE03/15/[address]: Carlita Berry MD : [id number] BED: DIS: 03/15/2020 SPEC #: [id number] RECD: 03/15/20 12:31 STATUS: KELLY RE #: [id number] DAO: 03/15/20 11:[address]: Carlita Berry DEPT: Surgical Specimen RECD BY: Arleen Sahu ENTERED: 03/15/20 12:33 SP TYPE: Bowel OTHR DR: Dillon Leyva DO Tissues: 1 - BIOPSY BOWEL 2 - BIOPSY BOWEL 3 - SOFT TISSUE MISC (INC. LIPOMA) Procedures: GROSS AND MICRO LEVEL 4 GROSS AND MICRO LEVEL 3 Comments: [id number] ([id number] [facility] [place]#)
[2020-03-15 12:02] VITALS: BP 118/63; PULSE 81; RESP 18; TEMP 36.3; O2SAT 99
== END 2020-03-15 12:36 | disposition home or self-care (01) ==
LOC: SUR 09:08
PROVIDERS: PCP Emergency Medicine; Visit Provider Surgery
PROC: 0DJD8ZZ Inspection of Lower Intestinal Tract, Via Natural or Artificial Opening Endoscopic (ICD-10-PCS; CPT 45378; principal; 2020-03-15 09:45)
DX: Z12.11 Encounter for screening for malignant neoplasm of colon (principal); Z86.010 Personal history of colon polyps; D12.5 Benign neoplasm of sigmoid colon
CPT/HCPCS: 45385; 45380; 88305; 88304; J2001; J2405

== ENCOUNTER 2020-08-31 17:32 | Outpatient (CLI) | payer OTHER, SELFPAY ==
--- NOTE | 2020-08-31 14:30 | DI.RAD_ITS ---
Exam(s) XR SHOULDER RT COMPLETE 2+V EXAM: XR SHOULDER RT COMPLETE 2+V CLINICAL HISTORY: shoulder pain M25.511 PAIN RT SHOULDER. TECHNIQUE: 2D digital imaging was performed. COMPARISON: CR RIGHT RIBS TO INCLUDE CXR from 11/19/2017 FINDINGS: There are again seen postsurgical changes of the distal clavicle. The bones are intact and normally mineralized. The glenohumeral joint is well maintained. No suspicious lytic or sclerotic lesions ar e seen. The soft tissues are unremarkable. IMPRESSION: No acute abnormality. DATA REPOSITORY: RADIATION DOSE DELIVERED:
== END 2020-08-31 17:52 ==
PROVIDERS: PCP Emergency Medicine; Visit Provider Emergency Medicine
DX: M25.511 Pain in right shoulder (principal)
CPT/HCPCS: 73030

== ENCOUNTER 2021-09-15 03:48 | Outpatient (CLI) | payer OTHER, SELFPAY ==
[2021-09-15 11:35] LABS: ALT 36 U/L (14-59); AST 18 U/L (15-37); Albumin 4.7 g/dL (3.4-5.0); Alkaline Phosphatase 78 U/L (46-116); BUN 11 mg/dL (7-18); Bilirubin, Total 0.4 mg/dL (0.2-1.0); CREATININE 0.7 mg/dL (0.55-1.02); Calcium 9.6 mg/dL (8.5-10.1); Calculated LDL 174 mg/dL (<100); Chloride 104 mmol/L (98-107); Cholesterol 290 mg/dL (<200); Glucose 106 mg/dL (74-106); HDL Cholesterol 84 mg/dL (40-60); Potassium 4.6 mmol/L (3.5-5.1); Sodium 143 mmol/L (136-145); Total Protein 7.7 g/dL (6.4-8.2); Triglyceride 161 mg/dL (<150)
[2021-09-16 09:40] LABS: Hepatitis C Ab w Rflx HCV PCR Negative (Negative)
[2021-09-16 10:13] LABS: HIV-1/2 Ag & Ab Screen Negative (Negative)
== END 2021-09-15 03:49 | disposition home or self-care (01) ==
LOC: LBO 03:48
PROVIDERS: PCP Nurse Practitioner; Visit Provider Family Medicine
DX: I10 Essential (primary) hypertension (principal); E78.5 Hyperlipidemia, unspecified; Z11.4 Encounter for screening for human immunodeficiency virus [HIV]; Z11.59 Encounter for screening for other viral diseases
CPT/HCPCS: 36415; 80053; 80061; 86803; 87389

== ENCOUNTER 2022-09-26 04:16 | Outpatient (CLI) | payer MEDICARE, SELFPAY ==
[2022-09-26 07:16] LABS: HCT 43.7 % (36.0-46.0); HGB 14.9 g/dL (11.2-15.7); MCH 31.5 pg (27.0-33.0); MCHC 34.1 % (32.0-36.0); MCV 92 fL (80-95); MPV 9.8 fL (8.0-11.0); Platelet Count 238 10^3/uL (130-400); RBC 4.73 10^6/uL (3.93-5.22); RDW 12.2 % (11.7-14.6); RDW-SD 41.6 fL; WBC 4.75 10^3/uL (4.4-10.8)
[2022-09-26 07:44] LABS: ALT 36 U/L (14-59); AST 20 U/L (15-37); Albumin 4.1 g/dL (3.4-5.0); Alkaline Phosphatase 73 U/L (46-116); Anion Gap 9.5 mmol/L (3-11); BUN 19 mg/dL (7-18); Bilirubin, Total 0.5 mg/dL (0.2-1.0); CO2 27.5 mmol/L (21.0-32.0); CREATININE 0.7 mg/dL (0.55-1.02); Calcium 8.8 mg/dL (8.5-10.1); Calculated LDL 215 mg/dL (<100); Chloride 103 mmol/L (98-107); Cholesterol 327 mg/dL (<200); Estimated GFR 95.92 (mL/min/1.73m2); Glucose 103 mg/dL (74-106); HDL Cholesterol 99 mg/dL (40-60); Potassium 3.9 mmol/L (3.5-5.1); Sodium 140 mmol/L (136-145); Total Protein 7.3 g/dL (6.4-8.2); Triglyceride 67 mg/dL (<150)
== END 2022-09-26 04:17 | disposition home or self-care (01) ==
LOC: LBO 04:16
PROVIDERS: PCP Nurse Practitioner Family; Visit Provider Nurse Practitioner Family
DX: E78.5 Hyperlipidemia, unspecified (principal); M79.672 Pain in left foot; G47.9 Sleep disorder, unspecified
CPT/HCPCS: 36415; 80053; 80061; 85027

== ENCOUNTER 2022-10-09 11:16 | Outpatient (CLI) | payer MEDICARE, SELFPAY ==
--- NOTE | 2022-10-09 11:15 | RT.EKG_ITS ---
APPROVED REPORT Exam: Resting ECG Reason for Exam: SOB Patient Location: O HR:63 bpm ECG Measurements Heart Rate 63 AXIS HI 169 P 46 QRSd 96 QRS 82 QT 373 T 54 QTc 382 Conclusion Sinus rhythm...normal P axis, V-rate 50- 99 Borderline right axis deviation...QRS axis ( 81, 90) Otherwise normal ECG
== END 2022-10-09 11:17 | disposition home or self-care (01) ==
LOC: DI.CM 11:17
PROVIDERS: PCP Nurse Practitioner Family; Visit Provider Nurse Practitioner Family
DX: R06.02 Shortness of breath (principal)
CPT/HCPCS: 93010

== ENCOUNTER 2022-10-10 01:37 | Outpatient (CLI) | payer MEDICARE, SELFPAY ==
--- NOTE | 2022-10-10 07:15 | DI.CT_ITS ---
Exam(s) CT CHEST PE CTA EXAM: CT CHEST PE CTA CLINICAL HISTORY: new shortness of breath,r06.02,? pe. TECHNIQUE: Imaging Protocol: CT angiography of the chest was performed using pulmonary embolus petey col. Multi planar reconstructions were performed. CONTRAST MATERIAL: Intravenous: Omnipaque 350 Contrast volume: 100 cc COMPARISON: CT CT THORAX ABDOMEN CTA from 12/19/2019 FINDINGS: CHEST: PULMONARY ARTERIES: There are no intraluminal filling defects to suggest acute pulmonary emboli. LUNGS: There are no infiltrates nor evidence of pulmonary infarction.. There are no pleural effusions . MEDIASTINUM: There is no hilar nor mediastinal adenopathy. CARDIAC: Heart size is upper normal. There is no pericardial effusion.Caliber of the thoracic aorta is 3.1 cm, within normal limits. No evidence of aortic dissection there is no significant shift of th e interventricular septum. PARTIALLY VISUALIZED UPPERMOST ABDOMEN: There is a hypodense nodule in the left adrenal gland measuri ng 1.9 x 1.3 cm, unchanged from prior CT scan of November 2019. OSSEOUS: No significant osseous lesions.. IMPRESSION: 1. No evidence of acute pulmonary emboli. No evidence of pulmonary infarction.No pleural effusions. 2. No infiltrates. No new significant intrathoracic adenopathy. 3. Left adrenal nodule measuring 19 x 13 mm, unchanged from CT scan of 12/19/2019 and therefore most probably a benign adenoma. RADIATION DOSE DELIVERED: 269.63mGy.cm Total DLP DATA REPOSITORY: All CT scans at this facility are submitted to the National Radiology Data Registry (NRDR) Dose Index Registry (DIR) with the [employer] (A[employer]). RADIATION OPTIMIZATION: All CT scans at this facility use at least one of these dose optimization te chniques: automated exposure control; mA and/or kV adjustment per patient size (includes targeted exa ms where dose is matched to clinical indication); or iterative reconstruction.
[2022-10-10] MEDS: Normal Saline - Diluent 50 ML VIAL IJ (08:29)
[2022-10-10] MEDS: Omnipaque 350 MG/ML 500 ML BTL-Imaging package 100 ML IJ (08:30)
== END 2022-10-10 01:57 ==
LOC: DI 01:40
PROVIDERS: PCP Nurse Practitioner Family; Visit Provider Nurse Practitioner Family
DX: R06.02 Shortness of breath (principal); E27.9 Disorder of adrenal gland, unspecified
CPT/HCPCS: 71275

== ENCOUNTER 2022-10-12 13:56 | Emergency (ER) | payer MEDICARE, SELFPAY ==
[2022-10-12] VITALS (51 sets, daily range): BP systolic 121–127; BP diastolic 64–74; PULSE 59–78; RESP 11–33; TEMP 36.8; O2SAT 91–100
--- NOTE | 2022-10-12 14:00 | RT.EKG_ITS ---
APPROVED REPORT Exam: Resting ECG Reason for Exam: sob Patient Location: E HR:62 bpm ECG Measurements Heart Rate 62 AXIS OK 175 P 68 QRSd 74 QRS 88 QT 375 T 72 QTc 381 Conclusion Sinus rhythm...normal P axis, V-rate 60- 99 Nonspecific T abnrm, anterolateral leads...T <-0.10mV, I aVL V2-V6 sinus rhythm ,normal axis, normal intervals, t wave inversions V1 V2
[2022-10-12 15:02] LABS: Abs Immature Grans 0.01 10^3/uL (0.0-0.06); Absolute Basophil Count 0.03 10^3/uL (0.0-0.2); Absolute Eosinophil Count 0.08 10^3/uL (0.0-0.7); Absolute Lymphocyte Count 1.82 10^3/uL (1.2-3.4); Absolute Monocyte Count 0.41 10^3/uL (0.1-0.8); Absolute Neutrophil Count 2.51 10^3/uL (1.2-6.7); Basophils % 0.6; Eosinophils % 1.6; HCT 41.6 % (36.0-46.0); HGB 14.6 g/dL (11.2-15.7); Immature Grans % 0.2; Lymphocytes % 37.4; MCH 31.8 pg (27.0-33.0); MCHC 35.1 % (32.0-36.0); MCV 91 fL (80-95); MPV 10.1 fL (8.0-11.0); Monocytes % 8.4; Neutrophils % 51.8; Platelet Count 238 10^3/uL (130-400); RBC 4.59 10^6/uL (3.93-5.22); RDW 11.9 % (11.7-14.6); RDW-SD 39.8 fL; WBC 4.86 10^3/uL (4.4-10.8)
[2022-10-12 15:08] LABS: Bilirubin Negative (Negative); Blood Trace-intact (Negative); Clarity Clear (Clear); Glucose Negative (Negative); Ketones 15 mg/dL (Negative); Leukocyte Esterase Negative (Negative); Nitrite Negative (Negative); Specific Gravity 1.015 (1.005-1.025); Urobilinogen 0.2 mg/dL (Up to 0.2)
[2022-10-12 15:15] LABS: Bacteria Negative HPF (Negative); Epithelial Cells Rare HPF (Negative); RBC 0-2 HPF (0-2); WBC Negative HPF (0-5)
[2022-10-12 15:16] LABS: C & S Indicated? No; Casts Negative LPF (Negative); Crystals Negative HPF (Negative); Mucus Negative (Negative)
--- NOTE | 2022-10-12 15:26 | W.ED.GENAD ---
Discharge Plan Disposition Patient Disposition: Home Discharge Details Chief Complaint: SOB Clinical Impression: Shortness of breath, Palpitations Primary Care Provider: Eden Mosley ED Provider: Trenton Cheney Home Meds and New Rx's Prescriptions: No Action multivitamin [Daily Multi-Vitamin] 1 EACH tablet 1 ea PO DAILY echinacea 400 MG capsule 400 mg PO DAILY ibuprofen 600 mg tablet 600 mg PO TID PRN (Reason: pain) Qty: 90 3RF cyanocobalamin (vitamin B-12) [Vitamin B-12] 1,000 MCG tablet 1,000 mcg PO DAILY vitamin E 400 UNIT capsule 2 tab PO DAILY cholecalciferol (vitamin D3) 1,000 UNITS tablet 2 tab PO DAILY PRN Glucosamine Sulf-Chondroitin 1 EACH capsule 2 tab PO DAILY Discharge Instructions Instructions: Heart Palpitations (ED), Dyspnea (ED) Additional Instructions: Please follow-up with your primary care physician. Please consider obtaining Holter monitor to assess for abnormal heartbeat. Please return to the emergency department for any worsening symptoms Medical Decision Making 67-year-old female recently started on a statin presents with sensation of shortness of breath and palpitation over the past several days, recently to herself off of the statin. Afebrile nontoxic normotensive nontachycardic EKG normal sinus rhythm normal axis normal intervals T wave inversion V1 to V2. No history of coronary disease or thromboembolic disease or risk factors. Lungs clear bilaterally. Negative work-up including negative CT PE study. Lower suspicion for ACS or PE given recent evaluation and EKG, must consider pleurisy versus costochondritis versus anxiety versus musculoskeletal discomfort versus medication reaction. Will obtain repeat labs EKG, trial of benzodiazepine. If feeling better after benzo consider intermittent panic attack versus anxiety. 16: 26 patient resting comfortably hemodynamically stable. Patient has appointment Sunday for primary care visit and stress test. Encouraged her to discuss with her primary care physician about obtaining Holter monitor given intermittent palpitations and shortness of breath. HPI General Date/Time Provider Initiated Documentation: 10/12/22 14:20. HPI Narrative: 67-year-old female presents with intermittent shortness of breath and fast heartbeat over the past 4 days, recently evaluated with negative blood test and CT chest. No history of thromboembolic disease no leg swelling or pain no recent travel no history of coronary artery disease. Was recently started on statin and noted symptoms started around that time, took herself off of statin Related Data Home Medications Medication Instructions Recorded Confirmed echinacea 400 mg capsule 400 mg PO DAILY 12/18/12 10/12/22 multivitamin (Daily Multi-Vitamin 1 ea PO DAILY 12/18/12 10/12/22 tablet) cyanocobalamin (vitamin B-12) 1,000 mcg PO DAILY 06/01/13 10/12/22 1,000 mcg tablet (Vitamin B-12) cholecalciferol (vitamin D3) 25 2 tab PO DAILY PRN 03/02/16 10/12/22 mcg (1,000 unit) tablet glucosamine sulfate dipotassium Cl 2 tab PO DAILY 03/02/16 10/12/22 500 mg-chondroitin 400 mg capsule (Glucosamine Sulfate 2 KCL-Chondroitin) vitamin E 268 mg (400 unit) capsule 2 tab PO DAILY 03/02/16 10/12/22 ibuprofen 600 mg tablet 600 mg PO TID PRN pain #90 tabs 09/14/22 10/12/22 Previous Rx's Medication Instructions Recorded ibuprofen 600 mg tablet 600 mg PO TID PRN pain #90 tabs 09/14/22 Allergies Allergy/AdvReac Type Severity Reaction Status Date / Time Penicillins Allergy Verified 10/12/22 12:58 oxycodone AdvReac Severe N/V Verified 10/12/22 12:58 prednisone AdvReac Severe VOMITING Verified 10/12/22 12:58 codeine AdvReac Intermediate N/V Verified 10/12/22 12:58 hydrocodone AdvReac Intermediate N/V,FLIP Verified 10/12/22 12:58 OUT meperidine AdvReac Intermediate N/V Verified 10/12/22 12:58 tramadol AdvReac Intermediate dizzy, Verified 10/12/22 12:58 nausea YELLOW HORNET VENOM Allergy Severe Uncoded 10/12/22 12:58 General Stated Complaint: SOB MADELINE: 3 Review of Systems Narrative: Review of Systems Constitutional: negative Eyes: negative ENT: negative Cardiovascular: Palpitations Respiratory: Shortness of breath Gastrointestinal: negative : negative Musculoskeletal: negative Skin: negative Neurologic: negative Psych: negative PFSH All Active Problems (Updated 10/12/22 @ 16:27 by Trenton Cheney MD) Shortness of breath (Acute) Palpitations (Acute) Hyperlipidemia (Acute) 08/2021 Uterine leiomyoma (Acute) Sleep disorder (Acute 12/29/15) Mucous polyp of cervix (Acute) Mitral valve regurgitation (Acute 03/29/84) Bereavement due to life event (Acute 03/29/02) son killed in MVA Acquired kyphosis (Acute) Medical History (Updated 10/12/22 @ 16:27 by Trenton Cheney MD) Chest pain neg. stress echo 01/17 COVID-19 (~08/22/21) 08/22/21-URI Cyst of Bartholin's gland duct removed History of postoperative nausea and vomiting Microscopic hematuria (01/31/16) Mitral valve regurgitation Pap smear vag w ASC-US (03/29/02) neg. HPV Serrated adenoma of colon [id number] adenoma and tubular adenoma, due 2024 Surgical History (Updated 09/02/21 @ 08:45 by Manish Garcia MD) Biopsy of breast Colonoscopy - MAC (04/09/17) H/O eye surgery bilat, at [facility]. about 2018 Family History (Updated 08/31/20 @ 13:09 by Elizabeth Huynh) Mother , AGE 89 Hyperlipidemia Skin cancer Dementia Father , AGE 85 Stroke Prostate cancer Brother Skin cancer Maternal Grandfather No problems noted. Paternal Grandfather Diabetes Stroke Maternal Grandmother Stroke Paternal Grandmother No problems noted. Brother No problems noted. Son , AGE 20 MVA No problems noted. Daughter No problems noted. Social History (Updated 09/05/21 @ 09:42 by Marguerite David) Smoking/Tobacco Use Status: Never Second Hand Exposure: Yes Smoking risk assessment performed?: Yes Alcohol Intake: current Alcohol Intake frequency: a few times a week Alcohol type: wine Drug use: Never Substance use type: does not use Caregiver/Support person: No Household members: spouse Housing: house Communication Needs: None Do you need help understanding health information?: Never Pets and animals: No Sexually active: Yes Do you think of yourself as: straight/heterosexual Current gender identity: female What is your relationship status?: How often do you talk on the phone with friends or family?: three or more times per week How often do you get together with friends or relatives?: once per week How often do you attend adventist or catholic services?: 4 or more times per year Do you belong to any clubs or organized social groups?: no Panel score (0-1 are the most socially isolated patients): 3 What type of physical activity do you participate in: walking and yoga Duration: 45-60 minutes/day Frequency: 1-2 times per week Harriett/Mandaen: Orthodox Special harriett needs: No Do you feel safe at home: Yes Do you feel safe in your relationship?: Yes Exam Narrative Exam Narrative: Physical Examination General: alert, awake, cooperative, resting comfortably, no acute distress HEENT: normocephalic, atraumatic; PERRL, EOM intact, conjunctiva normal; no nasal discharge; moist mucous membranes, oral and pharyngeal mucosa normal, tolerating secretions Neck: supple, trachea midline; full ROM Chest: normal to inspection Respiratory: normal respiratory effort, speaking in full sentences, clear to auscultation, no wheezing, rales or rhonchi Cardiac: regular rate, regular rhythm, S1S2 intact, no murmurs rubs or gallops GI: abdomen soft, non-tender, non-distended; no palpable mass or hepatosplenomegaly Skin: no lesions, rashes or trauma appreciated Neuro: AAOx3, normal speech, moving all extremities Psych: Appropriate mood and affect Course Vital Signs Vital signs: Vital Signs Temperature 36.8 C 10/12/22 14:01 Pulse 78 10/12/22 14:01 Respiratory Rate 18 10/12/22 14:01 Blood Pressure 127/73 10/12/22 14:01 Pulse Oximetry 100 10/12/22 14:01 Temperature 36.8 C 10/12/22 14:01 Pulse 78 10/12/22 14:01 Respiratory Rate 18 10/12/22 14:01 Respiratory Effort Short of Breath 10/12/22 14:05 Respiratory Depth Normal 10/12/22 14:05 Respiratory Pattern Normal 10/12/22 14:05 Blood Pressure 127/73 10/12/22 14:01 Pulse Oximetry 100 10/12/22 14:01 Oxygen Delivery Method Room Air 10/12/22 14:01 Oxygen Flow Rate 0 10/12/22 14:01 Pain Level 0 10/12/22 14:01 Lab/Test Results Lab/Test Results: Laboratory Tests Range/Units 10/12/22 10/12/22 14:54 14:54 WBC (4.4-10.8) 10^3/uL 4.86 RBC (3.93-5.22) 10^6/uL 4.59 Hgb (11.2-15.7) g/dL 14.6 Hct (36.0-46.0) % 41.6 MCV (80-95) fL 91 MCH (27.0-33.0) pg 31.8 MCHC (32.0-36.0) % 35.1 RDW (11.7-14.6) % 11.9 Plt Count (130-400) 10^3/uL 238 MPV (8.0-11.0) fL 10.1 Immature Gran % 0.2 Neutrophils % 51.8 Lymphocytes % 37.4 Monocytes % 8.4 Eosinophils % 1.6 Basophils % 0.6 Nucleated RBC % (0.0-0.3) % 0.0 Absolute Neutrophils (1.2-6.7) 10^3/uL 2.51 Absolute Lymphocytes (1.2-3.4) 10^3/uL 1.82 Absolute Monocytes (0.1-0.8) 10^3/uL 0.41 Absolute Eosinophils (0.0-0.7) 10^3/uL 0.08 Absolute Basophils (0.0-0.2) 10^3/uL 0.03 Urine Color (Yellow) Yellow Urine Clarity (Clear) Clear Urine pH (5-8) 7.0 Ur Specific [place] (1.005-1.025) 1.015 Urine Protein (Negative) mg/dL Negative Urine Ketones (Negative) mg/dL 15 H Urine Blood (Negative) Trace-intact H Urine Nitrite (Negative) Negative Urine Bilirubin (Negative) Negative Urine Urobilinogen (Up to 0.2) mg/dL 0.2 Ur Leukocyte Esterase (Negative) Negative Urine RBC (0-2) HPF 0-2 Urine WBC (0-5) HPF Negative Ur Epithelial Cells (Negative) HPF Rare Urine Crystals (Negative) HPF Negative Urine Bacteria (Negative) HPF Negative Urine Casts (Negative) LPF Negative Urine Mucus (Negative) Negative Ur Culture Indicated? No Urine Glucose (Negative) mg/dL Negative PAWSS Have you Been Recently Intoxicated or Drunk Within the Last 30 days?: No Have you Ever Experienced Previous Episodes of Alcohol Withdrawal?: No Have you ever Experienced Withdrawal Seizures?: No Have you ever Experienced Delirium Tremens(DT)s?: No Have you ever undergone Alcohol Rehabilitation Treatment (i.e, inpt ot outpatient treatment programs)?: No Have you ever Experienced Blackouts?: No Have you ever Combined Alcohol with other Downers within the last 90 days?: No Have you ever Combined Alcohol with any other Substance of Abuse during the last 90 days?: No Positive Blood Alcohol level on Presentation? [PCS.BAL]: No Evidence of Increased Autonomic Activity (i.e. HR>120, tremor, sweating, agitation, nausea)?: No Result: 0
[2022-10-12 15:27] LABS: ALT 44 U/L (14-59); AST 20 U/L (15-37); Albumin 4.1 g/dL (3.4-5.0); Alkaline Phosphatase 71 U/L (46-116); Anion Gap 8.2 mmol/L (3-11); BUN 10 mg/dL (7-18); Bilirubin, Total 0.3 mg/dL (0.2-1.0); CO2 28.8 mmol/L (21.0-32.0); CREATININE 0.6 mg/dL (0.55-1.02); Calcium 9.2 mg/dL (8.5-10.1); Chloride 106 mmol/L (98-107); Estimated GFR 99.55 (mL/min/1.73m2); Glucose 103 mg/dL (74-106); NT-proBNP 57 pg/mL (<300); Potassium 3.9 mmol/L (3.5-5.1); Sodium 143 mmol/L (136-145); TSH (W/Ref FT4) 2.68 uIU/mL (0.36-3.74); Total Protein 6.9 g/dL (6.4-8.2); Troponin I < 50 ng/L (<or=60)
[2022-10-12] MEDS: LORazepam 2 MG/ML VIAL 0.5 MG IVP (15:38)
[2022-10-16 14:59] LABS: Metanephrine, Free <0.20 nmol/L (<0.50); Normetanephrine, Free 0.35 nmol/L (<0.90)
[2022-10-19 02:16] LABS: Creatinine, Random Ur 39 mg/dL (16 - 326); Total Metanephrine/Creatinine 461 mcg/g Cr
== END 2022-10-12 16:47 | disposition home or self-care (01) ==
PROVIDERS: Emergency Provider Emergency Medicine; PCP Nurse Practitioner Family
DX: R06.02 Shortness of breath (principal); R00.2 Palpitations; R42 Dizziness and giddiness
CPT/HCPCS: 36415; 80053; 93005; 96374; 99284; 81003; 81015; 83835; 83880; 84443; 84484; 85025; 93010; J2060

== ENCOUNTER 2022-10-14 08:53 | Emergency (ER) | payer MEDICARE, SELFPAY ==
--- NOTE | 2022-10-14 08:45 | RT.EKG_ITS ---
APPROVED REPORT Exam: Resting ECG Reason for Exam: sob, dizzy Patient Location: E HR:63 bpm ECG Measurements Heart Rate 63 AXIS NV 169 P 60 QRSd 81 QRS 81 QT 373 T 61 QTc 381 Conclusion Sinus rhythm...normal P axis, V-rate 60- 99
[2022-10-14 08:58] VITALS: BP 147/74; PULSE 68; RESP 20; O2SAT 100
--- NOTE | 2022-10-14 09:12 | W.ED.GENAD ---
Discharge Plan Disposition Patient Disposition: Home Condition: Stable Discharge Details Clinical Impression: Shortness of breath, Palpitations Primary Care Provider: Eden Mosley ED Provider: Kleber Lin Home Meds and New Rx's Prescriptions: Continued multivitamin [Daily Multi-Vitamin] 1 EACH tablet 1 ea PO DAILY echinacea 400 MG capsule 400 mg PO DAILY ibuprofen 600 mg tablet 600 mg PO TID PRN (Reason: pain) Qty: 90 3RF cyanocobalamin (vitamin B-12) [Vitamin B-12] 1,000 MCG tablet 1,000 mcg PO DAILY vitamin E 400 UNIT capsule 2 tab PO DAILY cholecalciferol (vitamin D3) 1,000 UNITS tablet 2 tab PO DAILY PRN Glucosamine Sulf-Chondroitin 1 EACH capsule 2 tab PO DAILY atorvastatin 20 mg tablet Patient Comments: patient stated she stopped taking on Sunday10/10/22 per provider Discharge Instructions Instructions: Heart Palpitations (ED) Additional Instructions: your ekg, telemetry monitoring and lab work did not show concerning findings follow up with your primary care provider as scheduled Sunday along with your stress test Medical Decision Making 67 yo female with hx of hld who comes in with continued dyspnea and feeling her heart is racing. She has had a cta of her chest on 10/10 that was negative for acute findings, no pe, and was seen in the ED and had negative lab work up and tele monitoring. She states again this morning she feels short of breath and feels her heart is racing. She arrives hemodynamically stable speaking clearly. She states she feels her heart is racing and is in sinus rhythm with a rate of 60 on the monitor. She denies fevers, chills, abdominal pain. She has clear lung sounds, no jvd, no leg swelling, no calf tenderness. Pocus with no evidence of LV dysfunction, no enlarged RV, no pericardial effusion. Unclear etiology for her symptoms, given recent cta, no evidence of dvt and no hypoxia/tachycardia do not feel further workup for pe indicated. Will keep on tele, obtain cbc, cmp, troponin and reassess. pt's labs unremarkable, vitals stable, has been in sinus throughout her stay, hr 90, 100% spo2 on room air, bp 118/72. She is ambulating unassisted with normal gait and no signs of respiratory distress. She doesn't want to stay for a delta troponin. Her symptoms have been occurring throughout the week so delta troponin unlikely to be of benefit. She has a stress test scheduled on Sunday, heart score is 2 given her age and feel she is stable for d/c and outpatient f/u, return precautions given Differential Diagnosis Differential Diagnosis: anemia, svt, anxiety Medical Records Medical records reviewed: Yes I reviewed the patient's medical records. Lab Data Lab results reviewed: Yes I reviewed the patient's lab results. ECG Data Attestation: I personally reviewed and interpreted this ECG (s) as follows: Prior ECG tracings: available for review Interpretation: sinus, rate of 63, pr 169, no acute ischemic findings HPI General Date/Time Provider Initiated Documentation: 10/14/22 08:53. Limitations to Documentation: no limitations. Information obtained by: patient. History of Present Illness 67 year old F presents to the emergency department with the chief complaint of shortness of breath, described as moderate, Patient started experiencing this day(s) (6) and it has been intermittent. No relieving factors improve symptom(s), No exacerbating factors reported . Patient notes denies chest pain and fever/chills. Patient did receive the following treatments prior to arrival, none Related Data Home Medications Medication Instructions Recorded Confirmed echinacea 400 mg capsule 400 mg PO DAILY 12/18/12 10/14/22 multivitamin (Daily Multi-Vitamin 1 ea PO DAILY 12/18/12 10/14/22 tablet) cyanocobalamin (vitamin B-12) 1,000 mcg PO DAILY 06/01/13 10/14/22 1,000 mcg tablet (Vitamin B-12) cholecalciferol (vitamin D3) 25 2 tab PO DAILY PRN 03/02/16 10/14/22 mcg (1,000 unit) tablet glucosamine sulfate dipotassium Cl 2 tab PO DAILY 03/02/16 10/14/22 500 mg-chondroitin 400 mg capsule (Glucosamine Sulfate 2 KCL-Chondroitin) vitamin E 268 mg (400 unit) capsule 2 tab PO DAILY 03/02/16 10/14/22 ibuprofen 600 mg tablet 600 mg PO TID PRN pain #90 tabs 09/14/22 10/14/22 atorvastatin 20 mg tablet mg 10/14/22 10/14/22 Previous Rx's Medication Instructions Recorded ibuprofen 600 mg tablet 600 mg PO TID PRN pain #90 tabs 09/14/22 Allergies Allergy/AdvReac Type Severity Reaction Status Date / Time Penicillins Allergy Verified 10/14/22 09:03 oxycodone AdvReac Severe N/V Verified 10/14/22 09:03 prednisone AdvReac Severe VOMITING Verified 10/14/22 09:03 codeine AdvReac Intermediate N/V Verified 10/14/22 09:03 hydrocodone AdvReac Intermediate N/V,FLIP Verified 10/14/22 09:03 OUT meperidine AdvReac Intermediate N/V Verified 10/14/22 09:03 tramadol AdvReac Intermediate dizzy, Verified 10/14/22 09:03 nausea YELLOW HORNET VENOM Allergy Severe Uncoded 10/14/22 09:03 General Stated Complaint: Arrhythmia MADELINE: 3 Review of Systems All systems reviewed & are unremarkable except as noted in HPI and below Constitutional Constitutional: Denies chills, Denies fever(s) and Denies weakness Cardiovascular Cardiovascular: Denies chest pain Respiratory Respiratory: Denies cough Gastrointestinal Gastrointestinal: Denies abdominal pain, Denies nausea and Denies vomiting Musculoskeletal Musculoskeletal: Denies joint swelling Neurologic Neurologic: Denies weakness Psychiatric Psychiatric: Denies depression PFSH All Active Problems (Updated 10/14/22 @ 11:15 by Kleber Lin MD) Shortness of breath (Acute) Palpitations (Acute) Hyperlipidemia (Acute) 08/2021 Uterine leiomyoma (Acute) Sleep disorder (Acute 12/29/15) Mucous polyp of cervix (Acute) Mitral valve regurgitation (Acute 03/29/84) Bereavement due to life event (Acute 03/29/02) son killed in MVA Acquired kyphosis (Acute) Medical History (Updated 10/14/22 @ 11:15 by Kleber Lin MD) Chest pain neg. stress echo 01/17 COVID-19 (~08/22/21) 08/22/21-URI Cyst of Bartholin's gland duct removed History of postoperative nausea and vomiting Microscopic hematuria (01/31/16) Mitral valve regurgitation Pap smear vag w ASC-US (03/29/02) neg. HPV Serrated adenoma of colon [id number] adenoma and tubular adenoma, due 2024 Surgical History (Updated 09/02/21 @ 08:45 by Manish Garcia MD) Biopsy of breast Colonoscopy - MAC (04/09/17) H/O eye surgery bilat, at [facility]. about 2019 Family History (Updated 08/31/20 @ 13:09 by Elizabeth Huynh) Mother , AGE 89 Hyperlipidemia Skin cancer Dementia Father , AGE 85 Stroke Prostate cancer Brother Skin cancer Maternal Grandfather No problems noted. Paternal Grandfather Diabetes Stroke Maternal Grandmother Stroke Paternal Grandmother No problems noted. Brother No problems noted. Son , AGE 20 MVA No problems noted. Daughter No problems noted. Social History (Updated 09/05/21 @ 09:42 by Marguerite David) Smoking/Tobacco Use Status: Never Second Hand Exposure: Yes Smoking risk assessment performed?: Yes Alcohol Intake: current Alcohol Intake frequency: a few times a week Alcohol type: wine Drug use: Never Substance use type: does not use Caregiver/Support person: No Household members: spouse Housing: house Communication Needs: None Do you need help understanding health information?: Never Pets and animals: No Sexually active: Yes Do you think of yourself as: straight/heterosexual Current gender identity: female What is your relationship status?: How often do you talk on the phone with friends or family?: three or more times per week How often do you get together with friends or relatives?: once per week How often do you attend baptism or alevism services?: 4 or more times per year Do you belong to any clubs or organized social groups?: no Panel score (0-1 are the most socially isolated patients): 3 What type of physical activity do you participate in: walking and yoga Duration: 45-60 minutes/day Frequency: 1-2 times per week Harriett/Hinduism: Yarsanism Special harriett needs: No Do you feel safe at home: Yes Do you feel safe in your relationship?: Yes Exam Const General: no acute distress Orientation: alert HENAK Head: normal to inspection Ears: external ears normal General nose exam: external nose normal Mouth: moist mucous membranes Eyes General: appearance normal, both eyes and all related structures Neck Neck: normal visual inspection Resp Effort & Inspection: normal respiratory effort and able to speak in complete sentences Auscultation: clear to auscultation bilaterally Cardio Jugular venous pressure: no JVD Rate: regular rate Heart Sounds: no click and no gallops GI Palpation: soft and nontender Skin General skin exam: no rashes or lesions noted Neuro General: patient alert and patient oriented x3 Extrem General: normal to inspection Psych Mental Status: mental status grossly normal Course Vital Signs Vital signs: Vital Signs Pulse 68 10/14/22 08:58 Respiratory Rate 20 10/14/22 08:58 Blood Pressure 147/74 H 10/14/22 08:58 Pulse Oximetry 100 10/14/22 08:58 Pulse 68 10/14/22 08:58 Respiratory Rate 20 10/14/22 08:58 Respiratory Effort Non-Labored, Short of Breath 10/14/22 09:07 Blood Pressure 147/74 H 10/14/22 08:58 Pulse Oximetry 100 10/14/22 08:58 Oxygen Delivery Method Room Air 10/14/22 08:58 Oxygen Flow Rate 0 10/14/22 08:58 POCUS Exam (ED) Limited Cardiac Exam DATE OF EXAM: 10/14/22 TIME OF EXAM: 09:14 PROVIDER THAT PERFORMED THE STUDY: Kleber Lin IS THIS A REPEAT EXAM DURING THIS ENCOUNTER: no REASON FOR EXAM: Dyspnea VISUALIZED STRUCTURES: Left ventricle and Right ventricle VIEW OBTAINED: Parasternal long-axis and Subxiphoid PERTINENT FINDINGS/IMPRESSION: No apparent abnormalities; No LV dysfunction, No pericardial effusion and No RV dilation Exam complete PAWSS Have you Been Recently Intoxicated or Drunk Within the Last 30 days?: No Have you Ever Experienced Previous Episodes of Alcohol Withdrawal?: No Have you ever Experienced Withdrawal Seizures?: No Have you ever Experienced Delirium Tremens(DT)s?: No Have you ever undergone Alcohol Rehabilitation Treatment (i.e, inpt ot outpatient treatment programs)?: No Have you ever Experienced Blackouts?: No Have you ever Combined Alcohol with other Downers within the last 90 days?: No Have you ever Combined Alcohol with any other Substance of Abuse during the last 90 days?: No Result: 0
[2022-10-14 09:13] LABS: Absolute Basophil Count 0.02 10^3/uL (0.0-0.2); Absolute Eosinophil Count 0.06 10^3/uL (0.0-0.7); Absolute Lymphocyte Count 1.35 10^3/uL (1.2-3.4); Absolute Monocyte Count 0.32 10^3/uL (0.1-0.8); Basophils % 0.5; Eosinophils % 1.6; HCT 44.5 % (36.0-46.0); HGB 15.5 g/dL (11.2-15.7); MCH 30.9 pg (27.0-33.0); MCHC 34.8 % (32.0-36.0); MCV 89 fL (80-95); MPV 9.9 fL (8.0-11.0); Monocytes % 8.8; Neutrophils % 52.1; Platelet Count 252 10^3/uL (130-400); RBC 5.02 10^6/uL (3.93-5.22); RDW 11.9 % (11.7-14.6); RDW-SD 38.3 fL; WBC 3.65 10^3/uL (4.4-10.8)
[2022-10-14 09:38] LABS: ALT 46 U/L (14-59); AST 20 U/L (15-37); Albumin 4.2 g/dL (3.4-5.0); Alkaline Phosphatase 68 U/L (46-116); Anion Gap 11.2 mmol/L (3-11); BUN 9 mg/dL (7-18); Bilirubin, Total 0.4 mg/dL (0.2-1.0); CO2 25.8 mmol/L (21.0-32.0); CREATININE 0.8 mg/dL (0.55-1.02); Calcium 9.3 mg/dL (8.5-10.1); Chloride 105 mmol/L (98-107); Estimated GFR 81.72 (mL/min/1.73m2); Glucose 103 mg/dL (74-106); Potassium 3.8 mmol/L (3.5-5.1); Sodium 142 mmol/L (136-145); TSH (W/Ref FT4) 4.42 uIU/mL (0.36-3.74); Total Protein 7.2 g/dL (6.4-8.2); Troponin I < 50 ng/L (<or=60)
[2022-10-14 09:57] LABS: FREE T4 1.01 ng/dL (0.76-1.46)
== END 2022-10-14 11:20 | disposition home or self-care (01) ==
PROVIDERS: Emergency Provider Emergency Medicine; PCP Nurse Practitioner Family
DX: R06.02 Shortness of breath (principal); R42 Dizziness and giddiness; R00.2 Palpitations; E78.5 Hyperlipidemia, unspecified; Z79.899 Other long term (current) drug therapy; Z88.0 Allergy status to penicillin; Z88.5 Allergy status to narcotic agent; Z88.8 Allergy status to other drugs, medicaments and biological substances; Z91.030 Bee allergy status
CPT/HCPCS: 36415; 80053; 93005; 93227; 93308; 99284; 83735; 84439; 84443; 84484; 85025; 93010; 93225; 99283

== ENCOUNTER 2022-10-14 10:33 | Outpatient (RCR) | payer MEDICARE, SELFPAY ==
--- NOTE | 2022-10-14 10:45 | HOLTER_ITS ---
APPROVED REPORT Conclusion This is a 48-hour Holter monitor Rhythm throughout is sinus with an average heart rate of 66. Minimum was 46, maximum 128 There were no ventricular dysrhythmias A total of 5 isolated atrial premature beats were seen There was no atrial fibrillation, no SVT, no high-grade AV block, no pauses greater than 3 seconds Multiple patient symptoms were reported all of which corresponded to sinus rhythm
== END 2022-10-27 23:59 | disposition home or self-care (01) ==
LOC: RT 10:33
PROVIDERS: PCP Nurse Practitioner Family; Visit Provider Nurse Practitioner Family
DX: I49.9 Cardiac arrhythmia, unspecified (principal)
CPT/HCPCS: 93227; 93225; 93226

== ENCOUNTER 2022-10-16 02:59 | Outpatient (CLI) | payer MEDICARE, SELFPAY ==
--- NOTE | 2022-10-16 07:00 | DI.NM_ITS ---
APPROVED REPORT Exam: Exercise Treadmill Patient Location: Out-Patient Room/Bed: Stress Nurse: Leola Saba RN Ordering Provider:ONDINA VALDEZ, Contact Number: [phone] BMI: 20.17 Baseline Rhythm: Sinus Bradycardia Comment: Frequent PAC's Indications: New SOB Medical History Medical History: HLD, mitral valve reguritation, Chest pain Cardiac Medications: Vitamin E, multivitamin, Vitamin b12, Vitamin D3, atorvastatin Allergies: PCN, oxycodone, predisone, codeine, hydrocondone, meperidine, tramadol, yellow hornet veno m. Cardiac Risk Factors: Famliy hx, HLD Previous Cardiac Procedures: None Pretest Chest Pain Characteristics: None Exercise History: Indeterminate Physical Disabilities: Patient notes she cannot use treadmill due to SOB with exertion Lung Sounds: Clear to auscultation Heart Sounds: Regular, distant Stress Test Details Test: Pharmacologic stress testing performed using 0.4 mg of regadenoson per 5 mL given IV over 10 s econds. Reason for pharmacologic stress test: physical limitation. Nuclear Acquisition: Rest Tc-99m/Stress Tc-99m 1 day Rest Isotope: Tc-99m Sestamibi. Dose: 10.0 Date: 10/16/2022 Injection Time: 0845 Stress Isotope: Tc-99m Sestamibi. Dose: 31.0 Date: 10/16/2022 Injection Time: 1003 HR Resting HR Supine: 56 bpm Max Heart Rate (APMHR): 155.927355 bpm Target HR (85% APMHR): 131.243162 bpm Max HR Achieved: 97 bpm % of APMHR: 62.58 Recovery HR: 71 bpm BP Resting BP Supine: 120/68 mmHg Max BP: 124/80 mmHg Recovery BP: 122/76 mmHg ECG Resting ECG: Sinus Bradycardia Ectopy: Frequent PAC's Stress ECG: Sinus Tachycardia ST Change: Nondiagnostic low heart rate Arrhythmia: None Recovery ECG: Sinus Rhythm Recovery ST Change: Nondiagnostic low heart rate Recovery Arrhythmia: None Clinical Stress Symptoms: Moderate SOB Angina Score: None Rate Pressure Product: 02807 Stress ECG Conclusion 1. Resting electrocardiogram showed vertical axis, LVH voltage 2. Patient underwent testing using a combination of low-level exercise and pharmacologic stress with regadenoson 3. Heart rate achieved was 63% of predicted for age 4. The electrocardiographic portion of the test was nondiagnostic 5. See MPI report Stress Test Summary STAGE HR BP SpO2 Symptoms NOTES Supine 56 120/68 99 lightheaded, SOB 1 min post Lexiscan injection 77 110/76 98 Mod SOB 3 min post Lexiscan injection 82 124/80 99 Mild-Mod SOB 6 min post Lexiscan injection 71 122/76 99 All symptoms resolved MPI Conclusion There is normal myocardial perfusion, no evidence of ischemia or prior infarction EF is 57% with normal wall motion Radiologist Interpretation Radiologist agrees with Patient Advocate's Interpretation. Radiologist Interpretation by: Marita Barber MD Interpretation Date/Time: 10/16/2022 16:35:18
[2022-10-16] MEDS: Regadenoson 0.4 MG/5 ML SYR IVP (10:15)
== END 2022-10-16 03:19 ==
LOC: DI 02:59
PROVIDERS: PCP Nurse Practitioner Family; Visit Provider Nurse Practitioner Family
DX: R06.02 Shortness of breath (principal)
CPT/HCPCS: 78452; 93016; 93018; 93017; 93226; J2785

== ENCOUNTER 2022-12-26 03:16 | Outpatient (CLI) | payer MEDICARE, SELFPAY ==
[2022-12-26 14:08] LABS: TSH (W/Ref FT4) 3.28 uIU/mL (0.36-3.74)
== END 2022-12-26 03:17 | disposition home or self-care (01) ==
PROVIDERS: PCP Nurse Practitioner Family; Visit Provider Nurse Practitioner Family
DX: E78.5 Hyperlipidemia, unspecified (principal); R00.2 Palpitations
CPT/HCPCS: 36415; 84443

== ENCOUNTER → 2023-04-12 10:07 | Outpatient (BNVA) | payer MEDICARE, SELFPAY | PROVIDERS: PCP Nurse Practitioner Family; Referring Provider Nurse Practitioner Family; Visit Provider Physical Therapy Assistant | DX: Z12.11 Encounter for screening for malignant neoplasm of colon (principal); Z86.010 Personal history of colon polyps ==

== ENCOUNTER 2023-04-17 10:53 | Day surgery (SDC) | payer MEDICARE, SELFPAY ==
[2023-04-17] MEDS: Lactated Ringers 1,000 ML 80 ML IV (08:45)
[2023-04-17 11:35] VITALS: BP 120/84; PULSE 80; RESP 20; TEMP 36.4; O2SAT 98
--- NOTE | 2023-04-17 12:54 | W.ANESPRE ---
General Info Date of Service Date Performed: 04/17/23 Height: 5 ft 5 in Weight: 54.7 kg Body Mass Index (BMI): 20.0 Surgical Procedure: Operation Date: 04/17/23 12:50 Proposed Procedure Side Surgeon michael Andrade MD Meds Allergies and Home Medications Allergies Allergy/AdvReac Type Severity Reaction Status Date / Time Penicillins Allergy Verified 04/17/23 11:34 oxycodone AdvReac Severe N/V Verified 04/17/23 11:34 prednisone AdvReac Severe VOMITING Verified 04/17/23 11:34 codeine AdvReac Intermediate N/V Verified 04/17/23 11:34 hydrocodone AdvReac Intermediate N/V,FLIP Verified 04/17/23 11:34 OUT meperidine AdvReac Intermediate N/V Verified 04/17/23 11:34 tramadol AdvReac Intermediate dizzy, Verified 04/17/23 11:34 nausea YELLOW HORNET VENOM Allergy Severe Uncoded 04/17/23 11:34 Home Medication Medication Instructions Recorded echinacea 400 mg capsule 400 mg PO DAILY 12/18/12 multivitamin (Daily Multi-Vitamin 1 ea PO DAILY 12/18/12 tablet) cyanocobalamin (vitamin B-12) 1,000 mcg PO DAILY 06/01/13 1,000 mcg tablet (Vitamin B-12) cholecalciferol (vitamin D3) 25 2 tab PO DAILY PRN 03/02/16 mcg (1,000 unit) tablet glucosamine sulfate dipotassium Cl 2 tab PO DAILY 03/02/16 500 mg-chondroitin 400 mg capsule (Glucosamine Sulfate 2 KCL-Chondroitin) vitamin E 268 mg (400 unit) capsule 2 tab PO DAILY 03/02/16 ibuprofen 600 mg tablet 600 mg PO TID PRN pain #90 tabs 09/14/22 tumeric 100 mg-iveth 150 mg-olive 1 cap PO DAILY 03/19/23 50 mg-oreg 150 mg-caprylate capsule bisacodyl 5 mg tablet,delayed 5 mg PO ONCE #4 tabs 04/12/23 release (Dulcolax (bisacodyl)) polyethylene glycol 3350 17 17 g PO ONCE #238 grams 04/12/23 gram/dose oral powder Current Visit Medications: Current Medications Generic Name Dose Route Start Last Admin Trade Name Freq PRN Reason Stop Dose Admin Ringer's Solution 1,000 mls @ 80 mls/hr 04/17/23 06:00 04/17/23 08:45 IV 04/17/23 23:59 80 mls/hr INFUSION LEXIE Administration IV Miscellaneous Supplies 1 each 04/17/23 06:00 Iv Access IV 04/17/23 23:59 DIRECTED ELXIE Sodium Chloride 0 ml 04/17/23 06:00 Normal Saline Flush 10 Ml Syr IV 04/17/23 23:59 PRN PRN Sodium Chloride 0 ml 04/17/23 06:00 Normal Saline 10 Ml Vial IJ 04/17/23 23:59 DIRECTED PRN Sterile Water 0 ml 04/17/23 06:00 Water,Injection,Sterile 10 Ml Vial IJ 04/17/23 23:59 DIRECTED PRN PFSH Active Problems Active Problems: Problem Status Onset Code Osteoarthritis M19.90 Hyperlipidemia E78.5 Acquired kyphosis M40.209 Bereavement due to life event 03/29/02 Z63.4 Mitral valve regurgitation 03/29/84 I34.0 Mucous polyp of cervix N84.1 Sleep disorder 12/29/15 G47.9 Uterine leiomyoma D25.9 Medical History Medical History COVID-19 (~08/22/21) 08/22/21-URI Serrated adenoma of colon [id number] adenoma and tubular adenoma, due 2024 History of postoperative nausea and vomiting Mitral valve regurgitation Chest pain neg. stress echo 01/17 Cyst of Bartholin's gland duct removed Microscopic hematuria (01/31/16) Pap smear vag w [facility]-US (03/29/02) neg. HPV Surgical History Surgical History (Updated 04/17/23 @ 11:38 by Desiree Donald RN) History of gastrointestinal surgery mass found on colonoscopy removed at [facility] 2008 H/O eye surgery bilat, at [facility] ohth. about 2019 Colonoscopy - MAC (04/09/17) Biopsy of breast Tobacco Smoking/Tobacco Use Status: Never Passive smoking exposure: No Second hand exposure: Yes Alcohol Alcohol Intake: current Alcohol intake frequency: a few times a week Alcohol type: wine Substance Use Substance use: Never Substance use type: does not use Vital Signs and Lab Results Vital Signs Most Recent Vital Signs in EMR: Most Recent Vital Signs Temp Pulse Resp BP Pulse Ox 36.4 C L 80 20 120/84 98 04/17/23 11:35 04/17/23 11:35 04/17/23 11:35 04/17/23 11:35 04/17/23 11:35 Lab Results Blood Type / Crossmatch: No Data to Display Complete Blood Count: No Data to Display Complete Metabolic Panel: No Data to Display Liver Function Panel: No Data to Display Coagulation Panel: No Data to Display Cardiac Panel: No Data to Display Arterial Blood Gas: No Data to Display Venous Blood Gas: No Data to Display Pancreas Panel: No Data to Display Thyroid Panel: No Data to Display Infectious Disease: No Data to Display Blood Cultures: No Data to Display Toxicology Panel: No Data to Display Imaging and Studies Imaging and Studies Study information below may be from another EMR and interpreted by another provider. Please see original notes in EMR for more complete details. EKG Summary: 10/14/2022: Exam: Resting ECG Reason for Exam: sob, dizzy Patient Location: E HR:63 bpm ECG Measurements Heart Rate 63 AXIS VT 169 P 60 QRSd 81 QRS 81 QT 373 T61 QTc 381 Conclusion Sinus rhythm...normal P axis, V-rate 60- 99 I have reviewed and I agree with the emergency room physician's ECG interpretation. Stress Test Summary: 10/16/22: Clinical Stress Symptoms: Moderate SOB Angina Score: None Rate Pressure Product: [id number] Stress ECG Conclusion 1. Resting electrocardiogram showed vertical axis, LVH voltage 2. Patient underwent testing using a combination of low-level exercise and pharmacologic stress with regadenoson 3. Heart rate achieved was 63% of predicted for age 4. The electrocardiographic portion of the test was nondiagnostic 5. See MPI report Stress Test Summary [id number], SOB 1 min post Lexiscan [id number] SOB 3 min post Lexiscan [id number]-Mod SOB 6 min post Lexiscan [id number]/[id number] symptoms resolved MPI Conclusion There is normal myocardial perfusion, no evidence of ischemia or prior infarction EF is 57% with normal wall motion Radiologist Interpretation Radiologist agrees with Transportation Coordinator's Interpretation. Radiologist Interpretation by: Marita Barber MD Interpretation Date/Time: 10/16/2022 16:35:18 Anesthesia Assessment and Plan Anesthesia History Personal History: PONV Family History: No Family History of Anesthesia Complications Exercise Tolerance Exercise Tolerance: Metabolic Equivalents>4 Pertinent Negatives Pertinent Negatives: No Symptoms of GERD, No Major Cardiovascular Symptoms or Complaints and No Major Pulmonary Symptoms or Complaints Cardiac & Pulmonary Exam Cardiac Exam: Normal S1/S2 Heart Sounds Pulmonary Exam: Clear Bilateral Breath Sounds Implantable Cardiac Device Does patient have a Pacemaker or an ICD?: No Airway Exam Known Difficult Airway: No Mallampati Class: 2 Mouth Opening: Normal (> 3cm) Thyromental Distance: Greater than 3 cm Neck Range of Motion: Full ROM Neck Circumference: Normal Teeth Condition: Normal Dentition ASA Classification ASA Score: ASA 2 Emergency Case?: No NPO Status NPO Status: NPO Clears >2 hours, Solids >8 hours Anesthesia Plan Resuscitation Status: Full Code Anesthesia Technique: General Anesthesia Airway Planned: Natural Airway Monitors Used: Standard Monitors
--- NOTE | 2023-04-17 13:04 | COLE_ITS ---
Date of service: 04/17/23 Time of Service: 13:04 Colonoscopy Report Procedure Description: PROCEDURES PERFORMED: 1. Colonoscopy PREOPERATIVE DIAGNOSIS: Screening colonoscopy POSTOPERATIVE DIAGNOSIS: Grade 1 internal hemorrhoids, Diverticulosis SURGEON: Abraham Andrade MD INDICATION for procedure: The patient is a 67-year-old woman who had polyps on her last colonoscopy 3 years ago. 1 was sessile serrated histology hence the 3- year follow-up. She has no symptoms. She had a rectal tumor excision in the past. This was allegedly not a cancerous lesion. She has no family history of colon cancer. FINDINGS: Normal terminal ileum. No new polyps. No diverticular disease. In the rectum her prior tattoos are noted and carefully inspected. There is no evidence of recurrent growth visually. SURVEILLANCE-INTERVAL/FOLLOW-UP: 5 years considering the history Specimens: None EBL: Minimal COMPLICATIONS: None QUALITY of prep: Excellent Procedure in detail: The patient gave written consent and was in agreement with the indications, the potential risks as well as the benefits of the procedure. She was taken to the endoscopy suite and laid in the left lateral decubitus position. A timeout was performed and anesthesia was administered which was tolerated well. I started the procedure. Digital rectal and visual examination was performed and grossly within normal limits. A well-lubricated flexible colonoscope was then introduced and passed without any notable difficulty all the way to the cecum identified by the ileocecal valve and the appendiceal orifice. The terminal ileum was briefly intubated and looked normal visually. The scope was then slowly withdrawn with the above-noted findings. The patient tolerated the procedure well and was taken to the PACU in hemodynamically stable condition.
--- NOTE | 2023-04-17 13:05 | W.PM.DSUDISC ---
Date of service: 04/17/23 Time of Service: 13:05 Discharge Plan Disposition Patient Disposition: Home Condition: Good Discharge Details Attending Provider: Luis Andrade Primary Care Provider: Eden Mosley Home Meds and New Rx's Prescriptions: No Action [id number]-qymg-yebxu-oreg-capryl 100 mg-150 mg- 50 mg-150 mg capsule 1 cap PO DAILY bisacodyl [Dulcolax (bisacodyl)] 5 mg tablet,delayed release (DR/EC) 5 mg PO ONCE Qty: 4 0RF Rx Instructions: Take per colonoscopy instructions provided by ordering providers office polyethylene glycol 3350 17 gram/dose powder 17 g PO ONCE Qty: 238 0RF Rx Instructions: Take per colonoscopy instructions provided by ordering providers office multivitamin [Daily Multi-Vitamin] 1 EACH tablet 1 ea PO DAILY echinacea 400 MG capsule 400 mg PO DAILY ibuprofen 600 mg tablet 600 mg PO TID PRN (Reason: pain) Qty: 90 3RF cyanocobalamin (vitamin B-12) [Vitamin B-12] 1,000 MCG tablet 1,000 mcg PO DAILY vitamin E 400 UNIT capsule 2 tab PO DAILY cholecalciferol (vitamin D3) 1,000 UNITS tablet 2 tab PO DAILY PRN Glucosamine Sulf-Chondroitin 1 EACH capsule 2 tab PO DAILY Discharge Instructions Additional Instructions: FINDINGS: There were no new polyps found today. Your colon, small intestine and rectum all appear very healthy. The scar tissue from your surgery in the rectum was carefully inspected and appears completely normal. Because of your history I recommend another colonoscopy in 5 years. Stand Alone Forms: Colonoscopy Post Instructions Activity:: Activity as Tolerated Diet:: As Tolerated
[2023-04-17 13:30] VITALS: BP 90/78; PULSE 70; RESP 16; TEMP 35.9; O2SAT 99
[2023-04-17 13:58] VITALS: BP 123/74; PULSE 61; RESP 16; TEMP 36.2; O2SAT 100
--- NOTE | 2023-04-17 15:26 | W.ANESPOSTOP ---
Postoperative Evaluation Date, Time and Location Date Performed: 04/17/23 Time Performed: 13:30 Patient Location: Day Surgery Unit Vital Signs Most Recent Imported Vital Signs: Most Recent Vital Signs Temp Pulse Resp BP Pulse Ox 36.2 C L 61 16 123/74 100 04/17/23 13:58 04/17/23 13:58 04/17/23 13:58 04/17/23 13:58 04/17/23 13:58 Pain Score Most Recent Pain Score: Most Recent Pain Score Pain Level 0 04/17/23 13:30 Assessment Mental Status: Awake (Alert & Oriented to Patient Baseline) Airway and Respiratory Function: Patent airway with normal (patient baseline) respiratory exam Cardiovascular Function: Hemodynamically Stable Hydration Status: Adequately Hydrated Nausea & Vomiting: No Nausea or Vomiting Pain: Pt. Denies Any Pain Peripheral Nerve Block: Patient did not receive a nerve block
== END 2023-04-17 14:15 | disposition home or self-care (01) ==
PROVIDERS: PCP Nurse Practitioner Family; Visit Provider Student in an Organized Health Care Education/Training Program
PROC: 0DJD8ZZ Inspection of Lower Intestinal Tract, Via Natural or Artificial Opening Endoscopic (ICD-10-PCS; CPT 45378; principal; 2023-04-17 12:45)
DX: Z12.11 Encounter for screening for malignant neoplasm of colon (principal); Z86.010 Personal history of colon polyps; K57.30 Diverticulosis of large intestine without perforation or abscess without bleeding; K64.0 First degree hemorrhoids; G47.9 Sleep disorder, unspecified
CPT/HCPCS: G0105; 00123; J2405

== ENCOUNTER → 2023-04-19 02:39 | Outpatient (CLI) | payer MEDICARE, SELFPAY ==
--- NOTE | 2023-04-19 08:00 | DI.RAD_ITS ---
Exam(s) XR ARTHRITIS SERIES EXAM: XR ARTHRITIS SERIES CLINICAL HISTORY: bilateral hand pain,osteoarthritis,m19.90. TECHNIQUE: 2D digital imaging was performed. Two images were obtained. COMPARISON: No exams were available for comparison FINDINGS: BONES: No acute fracture is present. No bony destructive lesion is seen. JOINTS: No dislocation present. Mild osteoarthritis of the 1st CMC joints bilaterally characterized by joint space narrowing and osteophytes. There are cucj-yt-nfjzgqzj degenerative changes seen in th e interphalangeal joints of the hands bilaterally characterized by joint space narrowing and osteophy navya. The metacarpophalangeal joints are well maintained. No periosteal osteopenia is seen. No soft tissue calcifications are appreciated. No erosions are seen. SOFT TISSUE: Normal. IMPRESSION: Hxpu-hk-ytmxbpzm osteoarthritis of the hands. DATA REPOSITORY: RADIATION DOSE DELIVERED:
== END ==
PROVIDERS: PCP Nurse Practitioner Family; Visit Provider Nurse Practitioner Family
DX: M19.041 Primary osteoarthritis, right hand (principal); M19.042 Primary osteoarthritis, left hand
CPT/HCPCS: 73120

== ENCOUNTER → 2023-05-21 07:52 | Outpatient (BNVA) | payer MEDICARE, SELFPAY | PROVIDERS: PCP Nurse Practitioner Family; Referring Provider Nurse Practitioner Family | DX: M65.352 Trigger finger, left little finger (principal) | CPT/HCPCS: 20550; J1030 ==

== ENCOUNTER 2023-09-25 01:39 | Outpatient (CLI) | payer MEDICARE, SELFPAY ==
[2023-09-25 08:52] LABS: Anion Gap 3.3 mmol/L (3-11); BUN 17 mg/dL (7-18); CO2 28.7 mmol/L (21.0-32.0); CREATININE 0.8 mg/dL (0.55-1.02); Calcium 8.9 mg/dL (8.5-10.1); Calculated LDL 140 mg/dL (<100); Chloride 105 mmol/L (98-107); Cholesterol 249 mg/dL (<200); Estimated GFR 81.21 (mL/min/1.73m2); Glucose 112 mg/dL (74-106); HDL Cholesterol 84 mg/dL (40-60); Potassium 3.9 mmol/L (3.5-5.1); Sodium 137 mmol/L (136-145); Triglyceride 128 mg/dL (<150)
== END 2023-09-25 01:40 | disposition home or self-care (01) ==
PROVIDERS: PCP Nurse Practitioner Family; Visit Provider Nurse Practitioner Family
DX: E78.5 Hyperlipidemia, unspecified (principal); I34.0 Nonrheumatic mitral (valve) insufficiency; Z00.00 Encounter for general adult medical examination without abnormal findings
CPT/HCPCS: 36415; 80048; 80061

== ENCOUNTER 2023-10-04 05:08 | Outpatient (CLI) | payer MEDICARE, SELFPAY ==
[2023-10-04 11:55] LABS: Hemoglobin A1C 5.7 % (<5.7)
== END 2023-10-04 05:09 | disposition home or self-care (01) ==
LOC: LBO 05:08
PROVIDERS: PCP Nurse Practitioner Family; Visit Provider Nurse Practitioner Family
DX: R73.09 Other abnormal glucose (principal)
CPT/HCPCS: 36415; 83036

== ENCOUNTER → 2023-10-05 04:20 | Outpatient (CLI) | payer MEDICARE, SELFPAY ==
--- NOTE | 2023-10-05 06:30 | DI.US_ITS ---
APPROVED REPORT EXAM: Comprehensive 2D, Doppler, and color-flow Echocardiogram Patient Location: Out-Patient [facility] Statistical Programmer: Nora Simms RT (R) (CT) RD Rhythm: PVC's Indications: Cardiac Murmur. Nonrheumatic mitral valve insufficiency. Other Information Study Quality: Adequate Conclusion Normal left ventricular wall thickness and chamber size. Ejection fraction is 60 to 65%. Wall motio n is normal Normal right ventricular size and function Both atria are normal in size Aortic valve is mildly sclerotic and trileaflet without stenosis or regurgitation Mildly thickened mitral leaflets. Mild mitral regurgitation Normal tricuspid valve with mild regurgitation. Estimated right ventricular systolic pressure is wit hin the range of normal Wall motion Left Ventricle The left ventricle is normal size. The left ventricular systolic function is normal. The left ventric ular ejection fraction is within the normal range. There is normal left ventricular wall thickness. W all motion scoring is all normal. The left ventricular diastolic function is normal. There is no vent ricular septal defect visualized. LVEF is 60-65%. Right Ventricle The right ventricle is normal size. The right ventricular systolic function is normal. There is adi l right ventricular wall thickness. Atria The left atrium size is normal. The right atrium size is normal. The interatrial septum is intact wit h no evidence for an atrial septal defect. Aortic Valve Aortic valve is trileaflet. Mild sclerosis There is no aortic valvular stenosis. No aortic regurgitat ion is present. Mitral Valve Mitral valve leaflets are thickened. No evidence of mitral valve stenosis. Mild mitral regurgitation. Tricuspid Valve The tricuspid valve is normal in structure. There is no tricuspid valve stenosis. Mild tricuspid regu rgitation. The RVSP is 13 mmHg. Pulmonic Valve The pulmonary valve is normal in structure. There is no pulmonic valvular stenosis. There is trivial pulmonic insufficiency. Great Vessels The aortic root is normal in size. The pulmonary artery is normal. The ascending aorta is normal in s ize. IVC is normal in size and collapses >50% with inspiration. Pericardium There is trivial echo free space. 2D Dimensions IVSD d PLAX 0.90 cm F: 0.6-1.0 Ao Root d 2.76 cm F: 2.7 - 3.3 LVPW d PLAX 0.80 cm F: 0.6 - 1.0 Ao Asc Diam d 2.79 cm F: 2.3 - 3.1 LVID d PLAX 4.46 cm F: 3.8 - 5.2 Prox Ao Arch 2.5 cm LVDs 2.85 cm F: 2.2 - 3.5 IVC Diam exp d SLAX 1.3 cm LV EF Teichholz 65.8 % FS 35.99 % LV EDV (Teich) 90.5 mL LV ESV (Teich) 31.0 mL M-Mode TAPSE 2.17 cm (M/F) >1.7 Auto EF LV EDV A4C 76.6 mL LV EDV A2C 73.6 mL LV EDV BP 74.6 mL LV ESV A4C 32.1 mL LV ESV A2C 31.8 mL LV ESV BP 31.7 mL LVEF(%) A4C 58.1 % LVEF(%) A2C 56.8 % LVEF(%) BP 57.5 % LV SV A4C 44.5 ml LV SV A2C 41.8 ml LV SV BP 42.9 ml LV CO A4C 2.6 L/min LV CO A2C 2.5 L/min LV CO BP 2.6 L/min HR A4C 59.21 BPM HR A2C 60.00 BPM LV EDV Index (BP) LV Strain Long Pk Overal Avg (s) 18.03 LA Volume LA Length A4C 4.2 cm LA Length A2C 5.0 cm LA Area A4C s 11.32 cm2 LA Area A2C s 12.85 cm2 LA Vol A4C A-L 25.69 mL LA Vol A2C A-L 28.18 mL LA Vol Biplane A-L 29.2 mL LA Vol/BSA A4C A-L LA Vol/BSA A2C A-L LA Vol/BSA BP A-L 17.6 mL/m2 LA Vol A4C MOD 24.8 mL LA Vol A2C MOD 26.3 mL LA Vol BP MOD 27.4 mL LV Diastology MV E' medial 0.092 (>0.07 m/s) MV E Vmax 0.82 (0.4-1.3 m/s) MV E/E' MED 8.90 (<14) MV A Vmax 0.75 (0.4-1.3 m/s) MV E' lateral 0.097 (>0.1 m/s) E/A Ratio 1.1 MV E/E' LAT 8.43 (<14) MV E' Average 0.095 m/s MV E/E'(average) 8.66 Aortic Valve LVOT Vmax 0.84 m/s LVOT Peak Grad 2.8 mmHg LVOT VTI 0.177 m LVOT Mean Grad 1.7 mmHg LVOT SV 53.20 mL LVOT Diam s 1.95 cm Mitral Valve MV DT 179 (160-240 msec) MV Vmax TIPS 0.96 m/s MV Mean Grad 1.2 (<2mmHg) MV VTI 0.286 m Pulm Vein s 0.49 m/s Pulm Vein d 0.36 m/s Pulm Vein a 0.34 m/s Pulmonary Valve RVOT Vmax 0.59 m/s RVOT Peak Gr. 1.4 mmHg RVOT VTI 0.135 m RVOT Mean Gr. 0.8 mmHg Tricuspid Valve RA Pressure 3.00 mmHg TR Vmax 1.56 m/s TV S' 0.15 m/s TR Peak Grad 9.7 mmHg RVSP (TR) 12.7 mmHg
== END ==
PROVIDERS: PCP Nurse Practitioner Family; Visit Provider Nurse Practitioner Family
DX: I34.0 Nonrheumatic mitral (valve) insufficiency (principal)
CPT/HCPCS: 93306

== ENCOUNTER → 2024-03-20 09:58 | Outpatient (BNVA) | payer MEDICARE, SELFPAY | PROVIDERS: PCP Family Medicine; Referring Provider Family Medicine; Visit Provider Student in an Organized Health Care Education/Training Program | DX: M65.352 Trigger finger, left little finger (principal) | CPT/HCPCS: 20600; J1010 ==

== ENCOUNTER 2024-05-07 09:17 | Day surgery (SDC) | payer MEDICARE, SELFPAY ==
--- NOTE | 2024-05-07 07:22 | W.PM.DSUDISC ---
Date of service: 05/07/24 Discharge Plan Disposition Patient Disposition: Home Condition: Good Discharge Details Reason For Visit: LLF Trigger Release Attending Provider: Jung Larry Primary Care Provider: Giovana Jansen Home Meds and New Rx's Prescriptions: New acetaminophen 500 mg tablet 1,000 mg PO TID Qty: 90 0RF ibuprofen 600 mg tablet 600 mg PO TID PRN (Reason: pain) Qty: 90 0RF Continued cetirizine [Zyrtec] 10 mg tablet 10 mg PO DAILY PRN triamcinolone acetonide 0.1 % cream 1 applic topical BID Qty: 30 1RF multivitamin [Daily Multi-Vitamin] 1 EACH tablet 1 ea PO DAILY echinacea 400 MG capsule 400 mg PO DAILY cyanocobalamin (vitamin B-12) [Vitamin B-12] 1,000 MCG tablet 1,000 mcg PO DAILY vitamin E 400 UNIT capsule 2 tab PO DAILY Glucosamine Sulf-Chondroitin 1 EACH capsule 2 tab PO DAILY cholecalciferol (vitamin D3) 25 mcg (1,000 unit) tablet 50 mcg PO DAILY Discontinued ibuprofen 600 mg tablet 600 mg PO TID PRN (Reason: pain) Qty: 90 3RF Discharge Instructions Stand Alone Forms: Kendy Sepulveda Finger Misael Activity:: Activity as Tolerated Remove Dressings/Wound Care:: 48 hours Shower/Bathe:: 48 hours Diet:: As Tolerated Discharge Orders Discharge Orders: Discharge Order (Routine); Ordered 05/07/24 Ordered By: Joseph Rodriguez DS: Diagnosis Discharge Diagnosis (1) Trigger finger, left little finger: Status: Acute
[2024-05-07 09:32] VITALS: BP 133/90; PULSE 71; RESP 18; TEMP 36.2; O2SAT 96
[2024-05-07] MEDS: Sodium Bicarbonate 50 MEQ/50 ML VIAL (10:46)
[2024-05-07] MEDS: Lidocaine 1% Multi-Dose W/EPI 1/100,000 50 ML VIAL (10:46)
--- NOTE | 2024-05-07 11:05 | ROE_ITS ---
Operative Note Operative Note PRE-OP DIAGNOSIS: Left Little Finger Trigger Finger POST-OP DIAGNOSIS: same PROCEDURE: Trigger Finger Release - Left Little Finger SURGEON: Jung Larry ANESTHESIA TYPE: Local By Surgeon Refer to Anesthesia Record ESTIMATED BLOOD LOSS: 0 PATHOLOGY: none sent COMPLICATIONS: None Patient was transported to: same day Patient's condition: stable Indications: I have seen Milka in clinic for symptoms of a trigger finger. The catching, clicking, locking, and pain limited function. The diagnosis of trigger finger was evident. The symptoms had not responded to conservative measures. I d iscussed trigger finger release with the patient. I reviewed the risks of the procedure to include, but not limited to, bleeding, infection, pain, stiffness, incomplete release, damage to nerves or vessels, continued catching, recurrence. Despite these risks, the patient elected to proceed. Findings: There was a tightened A1 renato which was released. The flexor tendons were inspected and the patient was able to move the finger without any catching, clicking, or locking. Procedure Description: Milka was greeted in the preoperative holding area where the correct side was identified and marked. The consent was reviewed with the patient and signed. All questions were answered. She was taken back to the operating room. The patient was placed into the supine position on the operating room table with the left arm on an arm board. All bony prominences were well padded. No prophylactic antibiotics were administered since this was a clean, elective hand surgical case. The left arm was then prepped with Chloraprep and draped in a standard fashion with stockinette and extremity drape. A timeout to confirm correct identity, side and site, procedure, allergies, anesthesia, and medical concerns was performed. The surgical site was marked as a longitudinal incision directly over the A1 renato of the involved digit. This was confirmed with palpation during finger flexion. This area, overlying the metacarpal head, was then anesthetized with 1% Lidocaine. The patient tolerated this well and once the anesthetic had setup, the procedure began. A longitudinal incision was made through skin only, approximately 1cm. The deep tissues were dissected bluntly. Once the A1 renato and flexor tendons were identified the soft tissue including neurovascular structures were retracted medially and laterally. There were no crossing structures over the A1 renato. The proximal edge of the renato was identified and the renato was incised with tenotomy scissors. There was a release of the tendons once this was fully released. Milka was asked to move the finger into deep flexion and back to extension. There was no recreation of the pre- operative symptoms. The hand was then once more inspected for any A0 renato or area of possible constriction. The wound was then irrigated and the skin was closed with a 4-0 Nylon. This was dressed with gauze and a Conform dressing. The patient tolerated the procedure well and was returned to the Same Day Surgery area in a stable condition suffering no known complication. Date of Procedure: 05/07/24
[2024-05-07 11:07] VITALS: BP 131/73; PULSE 73; RESP 16; TEMP 36.5; O2SAT 97
== END 2024-05-07 11:15 | disposition home or self-care (01) ==
LOC: SUR 09:17
PROVIDERS: PCP Family Medicine; Visit Provider Student in an Organized Health Care Education/Training Program
PROC: (CPT 26055; principal; 2024-05-07 11:00)
DX: M65.352 Trigger finger, left little finger (principal)
CPT/HCPCS: 26055; J2004

== ENCOUNTER → 2024-05-16 08:22 | Outpatient (BNVA) | payer MEDICARE, SELFPAY | PROVIDERS: PCP Family Medicine; Referring Provider Family Medicine | DX: Z47.89 Encounter for other orthopedic aftercare (principal); R60.0 Localized edema | CPT/HCPCS: 99024 ==

== ENCOUNTER 2024-10-27 10:17 | Observation (INO) | payer MEDICARE, SELFPAY ==
[2024-10-27] VITALS (148 sets, daily range): BP systolic 114–157; BP diastolic 60–91; PULSE 54–86; RESP 8–27; TEMP 36–36.9; O2SAT 93–100
--- NOTE | 2024-10-27 10:15 | RT.EKG_ITS ---
APPROVED REPORT Exam: Resting ECG Reason for Exam: Chest Pain Patient Location: E HR:67 bpm ECG Measurements Heart Rate 67 AXIS KS 182 P 49 QRSd 76 QRS 82 QT 376 T 63 QTc 397 Conclusion Sinus rhythm...normal P axis, V-rate 60- 99
[2024-10-27 10:47] LABS: Abs Immature Grans 0.01 10^3/uL (0.0-0.06); HCT 43.6 % (36.0-46.0); HGB 15.1 g/dL (11.2-15.7); Immature Grans % 0.3 %; MCH 31.3 pg (27.0-33.0); MCHC 34.6 % (32.0-36.0); MCV 91 fL (80-95); MPV 10.1 fL (8.0-11.0); Platelet Count 239 10^3/uL (130-400); RBC 4.82 10^6/uL (3.93-5.22); RDW 11.9 % (11.7-14.6); RDW-SD 39.6 fL; WBC 3.79 10^3/uL (4.4-10.8)
[2024-10-27] MEDS: nitroGLYcerin 0.4 MG TAB SL (10:54)
[2024-10-27] MEDS: Normal Saline 250 ML 1000 ML IV (10:55)
--- NOTE | 2024-10-27 10:57 | DI.RAD_ITS ---
Exam(s) XR PORTABLE CHEST AP EXAM: XR PORTABLE CHEST AP CLINICAL HISTORY: Chest pain TECHNIQUE: 2D digital imaging was performed. COMPARISON: CR RIGHT RIBS TO INCLUDE CXR from 11/19/[address] CHEST PE CTA from 10/10/2022 FINDINGS: LUNGS: Clear. No pleural abnormality seen. HEART: Normal size. AORTA: Normal diameter. BONES: Unremarkable for age. Soft tissues: Unremarkable. IMPRESSION: No acute findings. DATA REPOSITORY: RADIATION DOSE DELIVERED:
--- NOTE | 2024-10-27 11:13 | W.ED.GENAD ---
Discharge Plan Disposition Patient Disposition: Admit to [facility] Condition: Serious Discharge Details Clinical Impression: Chest pain Primary Care Provider: Giovana Jansen ED Provider: Alok Roy Home Meds and New Rx's Prescriptions: No Action cetirizine [Zyrtec] 10 mg tablet 10 mg PO DAILY PRN triamcinolone acetonide 0.1 % cream 1 applic topical BID Qty: 30 1RF multivitamin [Daily Multi-Vitamin] 1 EACH tablet 1 ea PO DAILY echinacea 400 MG capsule 400 mg PO DAILY cyanocobalamin (vitamin B-12) [Vitamin B-12] 1,000 MCG tablet 1,000 mcg PO DAILY vitamin E 400 UNIT capsule 2 tab PO DAILY Glucosamine Sulf-Chondroitin 1 EACH capsule 2 tab PO DAILY cholecalciferol (vitamin D3) 25 mcg (1,000 unit) tablet 50 mcg PO DAILY acetaminophen 500 mg tablet 1,000 mg PO TID Qty: 90 0RF ibuprofen 600 mg tablet 600 mg PO TID PRN (Reason: pain) Qty: 90 0RF HPI General Mode of arrival: ambulatory. Date/Time Provider Initiated Documentation: 10/27/24 10:27. Limitations to Documentation: no limitations. Information obtained by: patient. HPI Narrative: HISTORY OF PRESENT ILLNESS 69-year-old female with hyperlipidemia presents with sudden onset chest pain. Pain began 30 minutes prior to arrival while gardening, radiated to back, associated with tingling in left jaw and tongue. Pain intermittent, rated 3/10, occasionally intensifies and radiates to back. Tingling in tongue and numbness in lips subsided. Bilateral jaw pain, more pronounced on left. No history of hypertension, diabetes, or cardiac disease. No recent leg swelling, calf pain, or excessive sweating. Pain relieved by deep breathing. Related Data Home Medications ?Medication ?Instructions ?Recorded ?Confirmed echinacea 400 mg capsule 400 mg PO DAILY 12/18/12 10/27/24 multivitamin (Daily Multi-Vitamin 1 ea PO DAILY 12/18/12 10/27/24 tablet) cyanocobalamin (vitamin B-12) 1,000 mcg PO DAILY 06/01/13 10/27/24 1,000 mcg tablet (Vitamin B-12) glucosamine sulfate dipotassium Cl 2 tab PO DAILY 03/02/16 10/27/24 500 mg-chondroitin 400 mg capsule (Glucosamine Sulfate 2 KCL-Chondroitin) vitamin E 268 mg (400 unit) capsule 2 tab PO DAILY 03/02/16 10/27/24 cetirizine 10 mg tablet (Zyrtec) 10 mg PO DAILY PRN 09/17/23 10/27/24 triamcinolone acetonide 0.1 % 1 applic topical BID #30 grams 09/17/23 10/27/24 topical cream cholecalciferol (vitamin D3) 25 50 mcg PO DAILY 04/08/24 10/27/24 mcg (1,000 unit) tablet acetaminophen 500 mg tablet 1,000 mg (2 x 500 mg) PO TID #90 05/07/24 10/27/24 tabs ibuprofen 600 mg tablet 600 mg PO TID PRN pain #90 tabs 05/07/24 10/27/24 Previous Rx's ?Medication ?Instructions ?Recorded triamcinolone acetonide 0.1 % 1 applic topical BID #30 grams 09/17/23 topical cream acetaminophen 500 mg tablet 1,000 mg (2 x 500 mg) PO TID #90 05/07/24 tabs ibuprofen 600 mg tablet 600 mg PO TID PRN pain #90 tabs 05/07/24 Allergies Allergy/AdvReac Type Severity Reaction Status Date / Time Penicillins Allergy unknown Verified 10/27/24 10:26 venom-honey bee Allergy Anaphylaxis Verified 10/27/24 10:26 oxycodone AdvReac Severe N/V Verified 10/27/24 10:26 prednisone AdvReac Severe VOMITING Verified 10/27/24 10:26 codeine AdvReac Intermediate N/V Verified 10/27/24 10:26 hydrocodone AdvReac Intermediate N/V,FLIP Verified 10/27/24 10:26 OUT meperidine AdvReac Intermediate N/V Verified 10/27/24 10:26 tramadol AdvReac Intermediate dizzy, Verified 10/27/24 10:26 nausea General Stated Complaint: Chest Pain MADELINE: 2 Review of Systems All systems reviewed & are unremarkable except as noted in HPI and below Constitutional Constitutional: Reports as per HPI Cardiovascular Cardiovascular: Reports chest pain Exam Narrative Exam Narrative: PHYSICAL EXAM General Appearance: Appropriately anxious. Vital signs: Within normal limits. HEENT: Within normal limits. Moist mucous membranes. Respiratory: Within normal limits. Clear to auscultation bilaterally. Cardiovascular: Heart murmur, systolic over left lateral chest; regular rate and rhythm Gastrointestinal: No abdominal tenderness. Musculoskeletal: No leg or calf swelling or pain. Skin: Warm and dry, no rash. Neurological: Normal. Course Vital Signs Vital signs: Vital Signs Temperature 36.9 C 10/27/24 10:22 Pulse 62 10/27/24 10:22 Respiratory Rate 14 10/27/24 10:22 Blood Pressure 135/67 10/27/24 10:22 Pulse Oximetry 99 10/27/24 10:22 Temperature 36.9 C 10/27/24 10:22 Temperature Source Oral 10/27/24 10:22 Pulse 65 10/27/24 11:04 Respiratory Rate 16 10/27/24 11:04 Respiratory Effort Labored 10/27/24 10:42 Respiratory Depth Normal 10/27/24 10:42 Respiratory Pattern Normal 10/27/24 10:42 Blood Pressure 126/78 10/27/24 11:04 Blood Pressure Mean 96 10/27/24 11:04 Pulse Oximetry 99 10/27/24 11:04 Oxygen Delivery Method Room Air 10/27/24 10:22 Oxygen Flow Rate 0 10/27/24 10:22 Pain Level 4 10/27/24 10:22 Lab/Test Results Lab/Test Results: Laboratory Tests Range/Units 10/27/24 10:32 WBC (4.4-10.8) 10^3/uL 3.79 L RBC (3.93-5.22) 10^6/uL 4.82 Hgb (11.2-15.7) g/dL 15.1 Hct (36.0-46.0) % 43.6 MCV (80-95) fL 91 MCH (27.0-33.0) pg 31.3 MCHC (32.0-36.0) % 34.6 RDW (11.7-14.6) % 11.9 Plt Count (130-400) 10^3/uL 239 MPV (8.0-11.0) fL 10.1 Immature Gran % % 0.3 Neutrophils % % 49.8 Lymphocytes % % 38.3 Monocytes % % 8.7 Eosinophils % % 2.1 Basophils % % 0.8 Nucleated RBC % (0.0-0.3) % 0.0 Absolute Neutrophils (1.2-6.7) 10^3/uL 1.89 Absolute Lymphocytes (1.2-3.4) 10^3/uL 1.45 Absolute Monocytes (0.1-0.8) 10^3/uL 0.33 Absolute Eosinophils (0.0-0.7) 10^3/uL 0.08 Absolute Basophils (0.0-0.2) 10^3/uL 0.03 APTT Cancelled Medical Decision Making ASSESSMENT AND PLAN Initial Assessment: 69-year-old female presenting with sudden onset left anterior chest pain radiating to left back, associated with tingling in left jaw and tongue. History of hyperlipidemia. Differential Diagnosis: - Cardiac ischemia: Administer nitroglycerin, obtain blood work, repeat EKG, consider observation. - Aortic dissection: Plan to obtain CTA ED Course: - EKG: No significant myocardial infarction. Sinus rhythm 67 bpm, question hyperacute T waves, no STEMI. - Plan to check troponin and trend. - Nitroglycerin SL administered. - Chest x-ray was reviewed and interpreted by radiology: No acute cardiopulmonary disease as interpreted by radiology. - Plan to repeat EKG and reassess based on lab results. - CTA of the chest abdomen pelvis interpreted by radiology: No acute abnormality in the chest, abdomen and pelvis. Mild atherosclerotic changes. Stable appearance of focal area of narrowing of the SMA which may be secondary to medial arcuate ligament, unchanged from prior. - Initial troponin negative at 4. Delta troponin at 1 hour slightly increased to 7. Final Assessment: 69-year-old female with history of hyperlipidemia here with sudden onset left-sided chest pain. Initial ischemic workup nondiagnostic. No dissection. Clinical Impression: - Chest pain concern for ischemia MDM Components Evaluation: - Number of Differential Diagnoses or Management Options: Cardiac ischemia, Anxiety - Amount and Complexity of Data Reviewed: EKG, blood work, x-ray - Risk of Complication and Morbidity or Mortality: Potential cardiac ischemia requiring close monitoring and observation. This document was written with the assistance of [employer]. The patient consented to its use. Medical Records Medical records reviewed: Yes I reviewed the patient's medical records. Medical records narrative: Myocardial perfusion scan from 10/16/2022: MPI Conclusion There is normal myocardial perfusion, no evidence of ischemia or prior infarction EF is 57% with normal wall motion Echocardiogram 10/05/2023: Conclusion Normal left ventricular wall thickness and chamber size. Ejection fraction is 60 to 65%. Wall motion is normal Normal right ventricular size and function Both atria are normal in size Aortic valve is mildly sclerotic and trileaflet without stenosis or regurgitation Mildly thickened mitral leaflets. Mild mitral regurgitation Normal tricuspid valve with mild regurgitation. Estimated right ventricular systolic pressure is within the range of normal Lab Data Lab results reviewed: Yes I reviewed the patient's lab results. Labs: Laboratory Tests Range/Units 10/27/24 10/27/24 10/27/24 10:32 10:57 11:29 WBC (4.4-10.8) 10^3/uL 3.79 L RBC (3.93-5.22) 10^6/uL 4.82 Hgb (11.2-15.7) g/dL 15.1 Hct (36.0-46.0) % 43.6 MCV (80-95) fL 91 MCH (27.0-33.0) pg 31.3 MCHC (32.0-36.0) % 34.6 RDW (11.7-14.6) % 11.9 Plt Count (130-400) 10^3/uL 239 MPV (8.0-11.0) fL 10.1 Immature Gran % % 0.3 Neutrophils % % 49.8 Lymphocytes % % 38.3 Monocytes % % 8.7 Eosinophils % % 2.1 Basophils % % 0.8 Nucleated RBC % (0.0-0.3) % 0.0 Absolute Neutrophils (1.2-6.7) 10^3/uL 1.89 Absolute Lymphocytes (1.2-3.4) 10^3/uL 1.45 Absolute Monocytes (0.1-0.8) 10^3/uL 0.33 Absolute Eosinophils (0.0-0.7) 10^3/uL 0.08 Absolute Basophils (0.0-0.2) 10^3/uL 0.03 APTT Cancelled 24.5 Sodium (136-145) mmol/L 142 Potassium (3.5-5.1) mmol/L 4.0 Chloride (98-107) mmol/L 105 Carbon Dioxide (21.0-32.0) mmol/L 26.5 Anion Gap (3-11) mmol/L 10.5 BUN (7-18) mg/dL 16 Creatinine (0.55-1.02) mg/dL 0.6 Est GFR (CKD-EPI 2020) (mL/min/1.73m2) 98.32 Glucose (74-106) mg/dL 109 H Calcium (8.5-10.1) mg/dL 9.3 Magnesium (1.8-2.4) mg/dL 2.2 Total Bilirubin (0.2-1.0) mg/dL 0.3 AST (15-37) U/L 16 ALT (14-59) U/L 37 Alkaline Phosphatase (46-116) U/L 76 Troponin I (<or=51) ng/L 4 7 Total Protein (6.4-8.2) g/dL 7.3 Albumin (3.4-5.0) g/dL 4.3 PFSH All Active Problems (Updated 10/27/24 @ 14:13 by Alok Roy MD) Chest pain (Acute) Lateral epicondylitis, left elbow (Acute) Environmental allergies (Acute) Eczema (Acute) Trigger finger of right hand (Acute) RRF RMF Trigger finger of left hand (Acute) LLF Depo-medrol injection: 05/21/23 Osteoarthritis (Chronic) bilateral hands Hyperlipidemia (Acute) 08/2021 Acquired kyphosis (Acute) Bereavement due to life event (Acute 03/29/02) son killed in MVA Mitral valve regurgitation (Acute 03/29/84) Mucous polyp of cervix (Acute) Sleep disorder (Acute 12/29/15) Uterine leiomyoma (Acute) Medical History COVID-19 (~08/22/21) 08/22/21-URI Serrated adenoma of colon [id number] adenoma and tubular adenoma, due 2024 History of postoperative nausea and vomiting Mitral valve regurgitation Chest pain neg. stress echo 01/17 Cyst of Bartholin's gland duct removed Microscopic hematuria (01/31/16) Pap smear vag w ASC-US (03/29/02) neg. HPV Surgical History Trigger finger, left little finger S/P Release: 05/07/2023 History of gastrointestinal surgery mass found on colonoscopy removed at [facility] 2008 H/O eye surgery bilat, at [facility] ohth. about 2018 Colonoscopy - MAC (04/09/17) Biopsy of breast Family History Mother , AGE 89 Hyperlipidemia Skin cancer Dementia Father , AGE 85 Stroke Prostate cancer Brother Skin cancer Maternal Grandfather No problems noted. Paternal Grandfather Diabetes Stroke Maternal Grandmother Stroke Paternal Grandmother No problems noted. Brother No problems noted. Son , AGE 20 MVA No problems noted. Daughter No problems noted. Social History Smoking/Tobacco Use Status: Never Second Hand Exposure: Yes Smoking risk assessment performed?: Yes Alcohol Intake: current Alcohol Intake frequency: a few times a week Alcohol type: wine Drug use: Never Substance use type: does not use Caregiver/Support person: No Household members: spouse Housing: house Communication Needs: None Do you need help understanding health information?: Never current occupation: retired banker Pets and animals: No Sexually active: Yes Do you think of yourself as: straight/heterosexual Current gender identity: female What is your relationship status?: How often do you talk on the phone with friends or family?: three or more times per week How often do you get together with friends or relatives?: once per week How often do you attend congregation or scientology services?: 4 or more times per year Do you belong to any clubs or organized social groups?: no Panel score (0-1 are the most socially isolated patients): 3 What type of physical activity do you participate in: walking and yoga Duration: 45-60 minutes/day Frequency: 1-2 times per week Harriett/Mormon: Orthodox Special harriett needs: No Do you feel safe at home: Yes Do you feel safe in your relationship?: Yes
[2024-10-27 11:16] LABS: PTT Activated 24.5 sec (20.6-30.2)
[2024-10-27 11:23] LABS: ALT 37 U/L (14-59); AST 16 U/L (15-37); Albumin 4.3 g/dL (3.4-5.0); Alkaline Phosphatase 76 U/L (46-116); Anion Gap 10.5 mmol/L (3-11); BUN 16 mg/dL (7-18); Bilirubin, Total 0.3 mg/dL (0.2-1.0); CO2 26.5 mmol/L (21.0-32.0); Calcium 9.3 mg/dL (8.5-10.1); Chloride 105 mmol/L (98-107); Estimated GFR 98.32 (mL/min/1.73m2); Glucose 109 mg/dL (74-106); Magnesium 2.2 mg/dL (1.8-2.4); Potassium 4.0 mmol/L (3.5-5.1); Sodium 142 mmol/L (136-145); Total Protein 7.3 g/dL (6.4-8.2); Troponin I 4 ng/L (<or=51)
[2024-10-27 11:59] LABS: Troponin I 7 ng/L (<or=51)
--- NOTE | 2024-10-27 12:15 | DI.CT_ITS ---
Exam(s) CT THORAX ABD/PEL CTA EXAM: CT THORAX ABD/PEL CTA CLINICAL HISTORY: chest pain radiating to back. TECHNIQUE: Imaging Protocol: Axial CT angiography was performed with multi- slice acquisition and multi-planar and/or 3D reconstructions. CONTRAST MATERIAL: Intravenous: Omnipaque 350 Contrast volume:70 ml Oral: / no COMPARISON: CT CT THORAX ABDOMEN CTA from 12/19/[address] CHEST PE CTA from 10/10/2022 CT,NM,TMT NM MPI REST STRESS GRP from 10/16/2022 CR XR PORTABLE CHEST AP from 10/27/2024 FINDINGS: CHEST: Pulmonary Arteries: No evidence of filling defect to suggest pulmonary emboli. Tracheobronchial tree: Patent where visualized. Mediastinum and Glo: No dominant adenopathy or fluid collection. Pulmonary parenchyma: No consolidation or dominant measurable mass. No architectural distortion. Pleura: No effusion or pneumothorax. Heart: The heart is not dilated. No coronary artery calcifications are seen. Aorta: Thoracic aorta measures 3.1 cm, unchanged from prior. Bones: Normal. Tubes, Catheters, and Lines: ABDOMEN AND PELVIS: Abdomen: Celiac axis: Focal kinking again noted without visible plaque. UB secondary to the median arcuate ligament. Similar appearance to prior. Mesenteric arteries: No evidence of occlusion or significant stenosis. Renal Arteries: No evidence of occlusion or significant stenosis. There is a single renal artery perfusing each kidney. Aorta: Mild atherosclerotic calcification no evidence of occlusion or significant stenosis. No aneurysm or dissection. Pelvis: Iliac Arteries: No evidence of occlusion or significant stenosis. Common Femoral Arteries: No evidence of occlusion or significant stenosis. Liver: Normal density. No measurable mass. Portal, Superior Mesenteric, and Splenic Veins: Unremarkable. Gallbladder and Biliary Tract: No radiodense calculus or dilation. Pancreas: Normal density, no abnormal calcifications or inflammatory process. Spleen: Normal. Adrenals: Stable small nodule in the left adrenal gland. Kidneys: Normal size, contour and axis. No radiodense stones or obstructive uropathy. No suspicious masses seen. Small simple cyst left kidney. Bowel: No obstruction or bowel wall thickening. Appendix is unremarkable. Metallic densities at the rectum. Peritoneal Cavity: No ascites, collection or mesenteric inflammatory response. Lymph Nodes: Within normal limits. Bones: Degenerative changes at L5-S1. Soft Tissues: Unremarkable. Bladder: Symmetric distention, no gross wall thickening. Reproductive Organs: Unremarkable, retroverted uterus. Lymph Nodes: Within normal limits. Bones: Within normal limits. IMPRESSION: No acute abnormality in the chest, abdomen and pelvis. Mild atherosclerotic changes. Stable appearance of focal area of narrowing of the SMA which may be secondary to medial arcuate ligament, unchanged from prior. RADIATION DOSE DELIVERED: 526.4mGy.cm Total DLP DATA REPOSITORY: All CT scans at this facility are submitted to the National Radiology Data Registry (NRDR) Dose Index Registry (DIR) with the [employer] (ACR). RADIATION OPTIMIZATION: All CT scans at this facility use at least one of these dose optimization techniques: automated exposure control; mA and/or kV adjustment per patient size (includes targeted exams where dose is matched to clinical indication); or iterative reconstruction.
[2024-10-27] MEDS: Omnipaque 350 MG/ML 100 ML BTL 70 ML IJ (13:29)
[2024-10-27] MEDS: Normal Saline - Diluent 50 ML VIAL IJ (13:30)
--- NOTE | 2024-10-27 14:15 | HPE_ITS ---
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 Patient states that 30 minutes prior to arrival she was gardening and had substernal chest pain that radiated to her back and was associated with tingling and pain in the left side of her jaw and tongue. She stated the pain was intermittent, rated as a 3 out of 10 but denies any lightheadedness, shortness of breath, dizziness, diaphoresis, nausea or vomiting. In the emergency department the patient was noted as having normal vital signs, normal CBC and CMP. EKG was checked and did not have any ST elevations, depressions or T wave inversions. 2 troponins were checked and were also negative. Additionally, CT angio chest was also negative. While in the emergency department the patient was given sublingual nitroglycerin. However, given patient's symptoms emergency room physician paged hospitalist for admission for patient with atypical chest pain who will be admitted under observation status for continued cardiac monitoring and repeat troponins. Review of Systems All systems reviewed & are unremarkable except as noted in HPI and below PFSH All Active Problems (Updated 10/27/24 @ 15:40 by MELISSA GRACE) Chest pain (Acute) Lateral epicondylitis, left elbow (Acute) Environmental allergies (Acute) Eczema (Acute) Trigger finger of right hand (Acute) RRF RMF Trigger finger of left hand (Acute) LLF Depo-medrol injection: 05/21/23 Osteoarthritis (Chronic) bilateral hands Hyperlipidemia (Acute) 08/2021 Acquired kyphosis (Acute) Bereavement due to life event (Acute 03/29/02) son killed in MVA Mitral valve regurgitation (Acute 03/29/84) Mucous polyp of cervix (Acute) Sleep disorder (Acute 12/29/15) Uterine leiomyoma (Acute) Medical History COVID-19 (~08/22/21) 08/22/21-URI Serrated adenoma of colon [id number] adenoma and tubular adenoma, due 2024 History of postoperative nausea and vomiting Mitral valve regurgitation Chest pain neg. stress echo 01/17 Cyst of Bartholin's gland duct removed Microscopic hematuria (01/31/16) Pap smear vag w ASC-US (03/29/02) neg. HPV Surgical History Trigger finger, left little finger S/P Release: 05/07/2023 History of gastrointestinal surgery mass found on colonoscopy removed at [facility] 2008 H/O eye surgery bilat, at [facility] ohth. about 2018 Colonoscopy - MAC (04/09/17) Biopsy of breast Family History Mother , AGE 89 Hyperlipidemia Skin cancer Dementia Father , AGE 85 Stroke Prostate cancer Brother Skin cancer Maternal Grandfather No problems noted. Paternal Grandfather Diabetes Stroke Maternal Grandmother Stroke Paternal Grandmother No problems noted. Brother No problems noted. Son , AGE 20 MVA No problems noted. Daughter No problems noted. Social History Smoking/Tobacco Use Status: Never Second Hand Exposure: Yes Smoking risk assessment performed?: Yes Alcohol Intake: current Alcohol Intake frequency: a few times a week Alcohol type: wine Drug use: Never Substance use type: does not use Caregiver/Support person: No Household members: spouse Housing: house Communication Needs: None Do you need help understanding health information?: Never current occupation: retired banker Pets and animals: No Sexually active: Yes Do you think of yourself as: straight/heterosexual Current gender identity: female What is your relationship status?: How often do you talk on the phone with friends or family?: three or more times per week How often do you get together with friends or relatives?: once per week How often do you attend zoroastrianism or latter day services?: 4 or more times per year Do you belong to any clubs or organized social groups?: no Panel score (0-1 are the most socially isolated patients): 3 What type of physical activity do you participate in: walking and yoga Duration: 45-60 minutes/day Frequency: 1-2 times per week Harriett/Latter Day: Jainism Special harriett needs: No Do you feel safe at home: Yes Do you feel safe in your relationship?: Yes Meds Allergies and Home Medications Allergies Allergy/AdvReac Type Severity Reaction Status Date / Time Penicillins Allergy unknown Verified 10/27/24 10:26 venom-honey bee Allergy Anaphylaxis Verified 10/27/24 10:26 oxycodone AdvReac Severe N/V Verified 10/27/24 10:26 prednisone AdvReac Severe VOMITING Verified 10/27/24 10:26 codeine AdvReac Intermediate N/V Verified 10/27/24 10:26 hydrocodone AdvReac Intermediate N/V,FLIP Verified 10/27/24 10:26 OUT meperidine AdvReac Intermediate N/V Verified 10/27/24 10:26 tramadol AdvReac Intermediate dizzy, Verified 10/27/24 10:26 nausea Home Medications ?Medication ?Instructions ?Recorded ?Confirmed ?Type echinacea 400 mg capsule 400 mg PO DAILY 12/18/12 History multivitamin (Daily Multi-Vitamin 1 ea PO DAILY 10/27/24 History tablet) cyanocobalamin (vitamin B-12) 1,000 mcg PO DAILY 06/0110/27/24 History 1,000 mcg tablet (Vitamin B-12) glucosamine sulfate dipotassium Cl 2 tab PO DAILY 07/1310/27/24 History 500 mg-chondroitin 400 mg capsule (Glucosamine Sulfate 2 KCL-Chondroitin) vitamin E 268 mg (400 unit) capsule 2 tab PO DAILY 07/1310/27/24 History cetirizine 10 mg tablet (Zyrtec) 10 mg PO DAILY PRN 10/27/24 History triamcinolone acetonide 0.1 % 1 applic topical BID #30 grams 09/17/23 10/27/24 Rx topical cream cholecalciferol (vitamin D3) 25 50 mcg PO DAILY 10/27/24 History mcg (1,000 unit) tablet acetaminophen 500 mg tablet 1,000 mg (2 x 500 mg) PO T ID #90 05/07/24 10/27/24 Rx tabs ibuprofen 600 mg tablet 600 mg PO TID PRN pain #90 t abs 05/07/24 10/27/24 Rx Exam Narrative Exam Narrative: Well-appearing female laying in bed in no acute distress, ANO x 4, heart regular rhythm, lungs good auscultation bilaterally, abdomen soft, nontender, nondistended Results Labs 10/27/24 10:32 10/27/24 10:32 Labs: Laboratory Results - last 24 hr 10/27/24 10/27/24 10/27/24 10:32 10:57 11:29 WBC 3.79 L RBC 4.82 Hgb 15.1 Hct 43.6 MCV 91 MCH 31.3 MCHC 34.6 RDW 11.9 Plt Count 239 MPV 10.1 Immature Gran % 0.3 Neutrophils % 49.8 Lymphocytes % 38.3 Monocytes % 8.7 Eosinophils % 2.1 Basophils % 0.8 Nucleated RBC % 0.0 Absolute Neutrophils 1.89 Absolute Lymphocytes 1.45 Absolute Monocytes 0.33 Absolute Eosinophils 0.08 Absolute Basophils 0.03 APTT Cancelled 24.5 Sodium 142 Potassium 4.0 Chloride 105 Carbon Dioxide 26.5 Anion Gap 10.5 BUN 16 Creatinine 0.6 Est GFR (CKD-EPI 2020) 98.32 Glucose 109 H Calcium 9.3 Magnesium 2.2 Total Bilirubin 0.3 AST 16 ALT 37 Alkaline Phosphatase 76 Troponin I 4 7 Total Protein 7.3 Albumin 4.3 Last Vital Signs Temp 98.4 F 10/27/24 10:22 Pulse 60 10/27/24 12:10 Resp 12 10/27/24 12:10 BP 121/67 10/27/24 12:01 Pulse Ox 96 10/27/24 12:10 Time Spent Time spent with Patient: >75 minutes Time was spent: preparing to see the patient(eg.review tests), obtaining and/or reviewing separately otained hiistory, ordering medications,tests, procedures, referring, communicating with other health date night caregiver, indepentently interpreting results, counseling the patient and care coordination
[2024-10-27 14:16] LABS: Troponin I 5 ng/L (<or=51)
[2024-10-27] MEDS: Aspirin 325 MG TAB PO (14:22)
--- NOTE | 2024-10-27 15:20 | W.PC.ACHO ---
Registration Status: REG ER Primary Language: Preferred Language: Yoruba ED Information & Data Chief Complaint Chest Pain 10/27/24 11:20 Triage Note Sudden chest pain started 10/27/24 10:22 about 30 mins ago. State she was gardening outside when the pain started. Migrating to her back and having numbness and tingling to the left jaw and tongue. Denies nausea or vomiting. Medical / Surgical History (Last Reviewed 10/27/24 @ 11:29 by Alok Roy MD) COVID-19 (~08/22/21) Serrated adenoma of colon History of postoperative nausea and vomiting Mitral valve regurgitation Chest pain Cyst of Bartholin's gland duct Microscopic hematuria (01/31/16) Pap smear vag w ASC-US (03/29/02) (Last Reviewed 10/27/24 @ 11:29 by Alok Roy MD) Trigger finger, left little finger History of gastrointestinal surgery H/O eye surgery Colonoscopy - MAC (04/09/17) Biopsy of breast Most Recent Vital Signs Temperature 36.9 C 10/27/24 10:22 Temperature Source Oral 10/27/24 10:22 Pulse 62 10/27/24 15:10 Respiratory Rate 16 10/27/24 15:02 Respiratory Effort Labored 10/27/24 10:42 Respiratory Depth Normal 10/27/24 10:42 Respiratory Pattern Normal 10/27/24 10:42 Blood Pressure 121/67 10/27/24 12:01 Blood Pressure Mean 82 10/27/24 12:01 Pulse Oximetry 99 10/27/24 15:10 Oxygen Delivery Method Room Air 10/27/24 10:22 Oxygen Flow Rate 0 10/27/24 10:22 Pain Level 4 10/27/24 10:22 Allergies Penicillins Allergy (Verified 10/27/24 10:26) unknown Unknown venom-honey bee Allergy (Verified 10/27/24 10:26) Anaphylaxis oxycodone Adverse Reaction (Severe, Verified 10/27/24 10:26) N/V prednisone Adverse Reaction (Severe, Verified 10/27/24 10:26) VOMITING CAN TAKE IF GIVEN PROMETHAZINE W/PRED PER PATIENT codeine Adverse Reaction (Intermediate, Verified 10/27/24 10:26) N/V hydrocodone Adverse Reaction (Intermediate, Verified 10/27/24 10:26) N/V,FLIP OUT meperidine Adverse Reaction (Intermediate, Verified 10/27/24 10:26) N/V tramadol Adverse Reaction (Intermediate, Verified 10/27/24 10:26) dizzy, nausea Precautions Isolation Standard precaution 10/27/24 10:42 Active Medications Generic Name Dose Route Start Last Admin Trade Name Freq PRN Reason Stop Dose Admin Iohexol 70 ml 10/27/24 13:30 10/27/24 13:29 Omnipaque 350 Mg/Ml 100 Ml Btl IJ 11/26/24 23:59 70 ml DIRECTED LEXIE Administration Nitroglycerin 0.4 mg 10/27/24 10:27 10/27/24 10:54 Nitroglycerin 0.4 Mg Tab SL 0.4 mg Q5 MIN PRN X3 PRN Administration Sodium Chloride 50 ml 10/27/24 13:30 10/27/24 13:30 Normal Saline - Diluent 50 Ml Vial IJ 50 ml .FOR DI USE LEXIE Administration IV IV Catheter Type [Right Saline Lock Antecubital] IV Catheter Gauge [Right 18 Antecubital] Diagnostics 10/27/24 10/27/24 10/27/24 Range/Units 13:41 11:29 10:57 WBC (4.4-10.8) 10^3/uL RBC (3.93-5.22) 10^6/uL Hgb (11.2-15.7) g/dL Hct (36.0-46.0) % MCV (80-95) fL MCH (27.0-33.0) pg MCHC (32.0-36.0) % RDW (11.7-14.6) % Plt Count (130-400) 10^3/uL MPV (8.0-11.0) fL Immature Gran % % Neutrophils % % Lymphocytes % % Monocytes % % Eosinophils % % Basophils % % Nucleated RBC % (0.0-0.3) % Absolute Neutrophils (1.2-6.7) 10^3/uL Absolute Lymphocytes (1.2-3.4) 10^3/uL Absolute Monocytes (0.1-0.8) 10^3/uL Absolute Eosinophils (0.0-0.7) 10^3/uL Absolute Basophils (0.0-0.2) 10^3/uL APTT 24.5 Sodium (136-145) mmol/L Potassium (3.5-5.1) mmol/L Chloride (98-107) mmol/L Carbon Dioxide (21.0-32.0) mmol/L Anion Gap (3-11) mmol/L BUN (7-18) mg/dL Creatinine (0.55-1.02) mg/dL Est GFR (CKD-EPI 2020) (mL/min/1.73m2) Glucose (74-106) mg/dL Calcium (8.5-10.1) mg/dL Magnesium (1.8-2.4) mg/dL Total Bilirubin (0.2-1.0) mg/dL AST (15-37) U/L ALT (14-59) U/L Alkaline Phosphatase (46-116) U/L Troponin I 5 7 (<or=51) ng/L Total Protein (6.4-8.2) g/dL Albumin (3.4-5.0) g/dL 10/27/ Range/Units 10:32 WBC 3.79 L (4.4-10.8) 10^3/uL RBC 4.82 (3.93-5.22) 10^6/uL Hgb 15.1 (11.2-15.7) g/dL Hct 43.6 (36.0-46.0) % MCV 91 (80-95) fL MCH 31.3 (27.0-33.0) pg MCHC 34.6 (32.0-36.0) % RDW 11.9 (11.7-14.6) % Plt Count 239 (130-400) 10^3/uL MPV 10.1 (8.0-11.0) fL Immature Gran % 0.3 % Neutrophils % 49.8 % Lymphocytes % 38.3 % Monocytes % 8.7 % Eosinophils % 2.1 % Basophils % 0.8 % Nucleated RBC % 0.0 (0.0-0.3) % Absolute Neutrophils 1.89 (1.2-6.7) 10^3/uL Absolute Lymphocytes 1.45 (1.2-3.4) 10^3/uL Absolute Monocytes 0.33 (0.1-0.8) 10^3/uL Absolute Eosinophils 0.08 (0.0-0.7) 10^3/uL Absolute Basophils 0.03 (0.0-0.2) 10^3/uL APTT Cancelled Sodium 142 (136-145) mmol/L Potassium 4.0 (3.5-5.1) mmol/L Chloride 105 (98-107) mmol/L Carbon Dioxide 26.5 (21.0-32.0) mmol/L Anion Gap 10.5 (3-11) mmol/L BUN 16 (7-18) mg/dL Creatinine 0.6 (0.55-1.02) mg/dL Est GFR (CKD-EPI 2020) 98.32 (mL/min/1.73m2) Glucose 109 H (74-106) mg/dL Calcium 9.3 (8.5-10.1) mg/dL Magnesium 2.2 (1.8-2.4) mg/dL Total Bilirubin 0.3 (0.2-1.0) mg/dL AST 16 (15-37) U/L ALT 37 (14-59) U/L Alkaline Phosphatase 76 (46-116) U/L Troponin I 4 (<or=51) ng/L Total Protein 7.3 (6.4-8.2) g/dL Albumin 4.3 (3.4-5.0) g/dL Intake and Output - 24 Hour Total 10/27/24 10:17 thru 10/27/24 11:14 Intake Total 250 Balance 250 Weight 62.823 kg Intake: IV 250 Falls Risk Assessment History of Falls No History 10/27/24 10:42 Contributing Factors No Factors 10/27/24 10:42 Ambulatory Aids Independent 10/27/24 10:42 Tubes/Lines None 10/27/24 10:42 Gait Evaluation No gait disturbance 10/27/24 10:42 Cognition No cognitive impairment 10/27/24 10:42 Fall Total Score 0 10/27/24 10:42 Level of Risk Standard/Low Risk 10/27/24 10:42 Problems (Last Reviewed 10/27/24 @ 11:29 by Alok Roy MD) Chest pain (Acute) Hyperlipidemia (Acute) v v v v v v v v v Sending and/or Receiving Nurses: Please use comment section below to note any information pertinent to the patient hand-off not included above. Information / Comments: Report called for at 1512. 18 G R AC. Overnight obs. Report received from: Carla Barbour ED RN
[2024-10-27 16:46] LABS: Troponin I 6 ng/L (<or=51)
[2024-10-27 19:19] LABS: Troponin I 5 ng/L (<or=51)
[2024-10-27] MEDS: Normal Saline Flush 10 ML SYR IVP (20:17)
[2024-10-28 03:30] VITALS: BP 112/69; PULSE 60; RESP 17; TEMP 36.8; O2SAT 98
[2024-10-28 06:30] LABS: HCT 40.7 % (36.0-46.0); HGB 13.7 g/dL (11.2-15.7); MCH 30.4 pg (27.0-33.0); MCHC 33.7 % (32.0-36.0); MCV 90 fL (80-95); MPV 10.1 fL (8.0-11.0); Platelet Count 228 10^3/uL (130-400); RBC 4.51 10^6/uL (3.93-5.22); RDW 12.0 % (11.7-14.6); RDW-SD 40.1 fL; WBC 4.51 10^3/uL (4.4-10.8)
[2024-10-28 07:12] LABS: Anion Gap 8.6 mmol/L (3-11); BUN 14 mg/dL (7-18); CO2 26.4 mmol/L (21.0-32.0); Calcium 9.1 mg/dL (8.5-10.1); Chloride 107 mmol/L (98-107); Estimated GFR 102.73 (mL/min/1.73m2); Glucose 106 mg/dL (74-106); Magnesium 2.3 mg/dL (1.8-2.4); Potassium 4.0 mmol/L (3.5-5.1); Sodium 142 mmol/L (136-145); Troponin I 5 ng/L (<or=51)
[2024-10-28 07:17] VITALS: BP 143/72; PULSE 63; RESP 16; TEMP 36.8; O2SAT 94
[2024-10-28] MEDS: Normal Saline Flush 10 ML SYR IVP (08:15)
--- NOTE | 2024-10-28 08:49 | PDOC.CMIN ---
Date of service: 10/28/24 Time of Service: 08:49 Care Management Initial Assmt Initial Assessment Reason for Hospitalization: Atypical Chest Pain Functional Status/Living Situation Town of Residence: [place] Resides with: Spouse Significant Other/Family: Local Activities/Hobbies/SocialSupport: Gardening Medications Medication Management: No Issues/Barriers identified Advance Directives Advance Directives: Do you have an Advance Directive: Y 04/18/23, 10:55 AD On File at [facility]: Y 04/18/23, 10:55 Date Asked 05/23/18 09/16/24, 14:00 AD Date Reviewed 10/27/24 10/27/24, 10:29 COLST On File at [facility] COLST Date Scanned Code Status Resuscitation Status Full Code Portal Pt does not currently have a portal and education provided: Yes Insurance Coverage/Financial Issues Insurance: Medicare Part A & B - [id number] Care Team Visit Care Team Role Provider Type Giovana Jansen MD Primary Care Provider [facility] STAFF PHYSICIAN Alok Roy MD Emergency Provider [facility] STAFF PHYSICIAN Jean Rob MD Admit Provider [facility] STAFF PHYSICIAN Attending Provider Discharge Potential Discharge Needs: PCP F/U Appt Anticipated Barriers to Discharge: Medical Status Patient/Family Education Needs: Review discharge instructions, discuss Ask Me Three Transportation: Private vehicle Social Determinants of Health Screening Social Determinants of health last assessed in clinic: 10/27/24 Will the Patient Participate in the Screening?: Yes Do you worry about having a steady place to live?: no Problems where you live: no known problems In the past 12 months, have you had to go without electric, gas, oil or water in your home?: no Has lack of transportation kept you from medical appointments or from doing things needed for daily living?: no Has anyone in your life made you feel unsafe or unsupported?: no How hard is it for you to pay for the very basics like food, housing, medical care, and heating? Would you say it is:: Not hard at all Do you want help finding or keeping work or a job?: I do not need or want help If for any reason you need help with day-to-day activities such as bathing, preparing meals, shopping, managing finances, etc., do you get the help you need?: I don?t need any help How often do you feel lonely or isolated from those around you?: Never Do you speak a language other than Portuguese at home?: No Does the patient want assistance with any of the above?: No PFSH All Active Problems (Updated 10/28/24 @ 09:00 by Jean Rob MD) Chest pain (Acute) Lateral epicondylitis, left elbow (Acute) Environmental allergies (Acute) Eczema (Acute) Trigger finger of right hand (Acute) RRF RMF Trigger finger of left hand (Acute) LLF Depo-medrol injection: 05/21/23 Osteoarthritis (Chronic) bilateral hands Hyperlipidemia (Acute) 08/2021 Acquired kyphosis (Acute) Bereavement due to life event (Acute 03/29/02) son killed in MVA Mitral valve regurgitation (Acute 03/29/84) Mucous polyp of cervix (Acute) Sleep disorder (Acute 12/29/15) Uterine leiomyoma (Acute) Medical History COVID-19 (~08/22/21) 08/22/21-URI Serrated adenoma of colon [id number] adenoma and tubular adenoma, due 2024 History of postoperative nausea and vomiting Mitral valve regurgitation Chest pain neg. stress echo 01/17 Cyst of Bartholin's gland duct removed Microscopic hematuria (01/31/16) Pap smear vag w ASC-US (03/29/02) neg. HPV Surgical History Trigger finger, left little finger S/P Release: 05/07/2023 History of gastrointestinal surgery mass found on colonoscopy removed at [facility] 2007 H/O eye surgery bilat, at [facility] ohth. about 2019 Colonoscopy - MAC (04/09/17) Biopsy of breast Family History Mother , AGE 89 Hyperlipidemia Skin cancer Dementia Father , AGE 85 Stroke Prostate cancer Brother Skin cancer Maternal Grandfather No problems noted. Paternal Grandfather Diabetes Stroke Maternal Grandmother Stroke Paternal Grandmother No problems noted. Brother No problems noted. Son , AGE 20 MVA No problems noted. Daughter No problems noted. Social History Smoking/Tobacco Use Status: Never Second Hand Exposure: Yes Smoking risk assessment performed?: Yes Alcohol Intake: current Alcohol Intake frequency: a few times a week Alcohol type: wine Drug use: Never Substance use type: does not use Caregiver/Support person: No Household members: spouse Housing: house Communication Needs: None Do you need help understanding health information?: Never current occupation: retired banker Pets and animals: No Sexually active: Yes Do you think of yourself as: straight/heterosexual Current gender identity: female What is your relationship status?: How often do you talk on the phone with friends or family?: three or more times per week How often do you get together with friends or relatives?: once per week How often do you attend judaism or quaker services?: 4 or more times per year Do you belong to any clubs or organized social groups?: no Panel score (0-1 are the most socially isolated patients): 3 What type of physical activity do you participate in: walking and yoga Duration: 45-60 minutes/day Frequency: 1-2 times per week Harriett/Jewish: Nondenominational Special harriett needs: No Do you feel safe at home: Yes Do you feel safe in your relationship?: Yes Readmission Within the Past 30 Days Yes or No: No
--- NOTE | 2024-10-28 09:01 | DSE_ITS ---
Date of service: 10/28/24 Time of Service: 09:01 DS: Diagnosis Discharge Diagnosis (1) Chest pain: Status: Acute (2) Hyperlipidemia: Status: Acute Discharge Plan Disposition Patient Disposition: Home Condition: Good Discharge Details Reason For Visit: Atypical chest pain Admit Date/Time: 10/27/24 14:15 Admit Provider: Jean Rob Attending Provider: Jean Rob Primary Care Provider: Giovana Jansen Hospital Course Hospital Course: Patient initially presented with signs and symptoms of atypical chest pain concerning for ACS. Troponins in the emergency department as well as on the morning of discharge 10/28/2024 were all negative. EKG was without any ST el evations, depressions, T wave inversions, and telemetry overnight did not show any concerning arrhythmias. Additionally, patient's pain did not recur. Therefore, it was determined that the patient was stable for discharge home with recommendation for outpatient cardiac stress test. Home Meds and New Rx's Prescriptions: Continued cetirizine [Zyrtec] 10 mg tablet 10 mg PO DAILY PRN triamcinolone acetonide 0.1 % cream 1 applic topical BID Qty: 30 1RF multivitamin [Daily Multi-Vitamin] 1 EACH tablet 1 ea PO DAILY echinacea 400 MG capsule 400 mg PO DAILY cyanocobalamin (vitamin B-12) [Vitamin B-12] 1,000 MCG tablet 1,000 mcg PO DAILY vitamin E 400 UNIT capsule 2 tab PO DAILY Glucosamine Sulf-Chondroitin 1 EACH capsule 2 tab PO DAILY cholecalciferol (vitamin D3) 25 mcg (1,000 unit) tablet 50 mcg PO DAILY acetaminophen 500 mg tablet 1,000 mg PO TID Qty: 90 0RF ibuprofen 600 mg tablet 600 mg PO TID PRN (Reason: pain) Qty: 90 0RF Discharge Instructions Activity:: Activity as Tolerated Equipment/Supplies:: No Equipment Needed Diet:: As Tolerated Discharge Orders Other Ambulatory Orders: NM MPI rest & stress grp (Routine) Timeframe: 10 Day Facility: [facility] - Location: DIAGNOSTIC IMAGING Ordered By: Jean Rob DS: Summary Time Spent with Patient providing and/or coordinating discharge services: Greater than 30 minutes Status at Discharge Functional status at discharge: independent ambulation Overall status at discharge: patient is back to baseline Mental Status: mental status grossly normal Speech and Movement: speech and movement normal Mood: congruent mood Affect: normal affect Exam Narrative Exam Narrative: Well-appearing female laying in bed in no acute distress, ANO x 4, heart regular rhythm, lungs good auscultation bilaterally, abdomen soft, nontender, nondistended Psych Mental Status: mental status grossly normal Speech and Movement: speech and movement normal Mood: congruent mood Affect: normal affect DS: Data Vitals/I&O Vitals and I&O: Vital Signs Temperature 98.2 F 10/28/24 07:17 Temperature Source Tympanic 10/28/24 07:17 Pulse 63 10/28/24 07:17 Pulse Rhythm Regular 10/27/24 15:46 Respiratory Rate 16 10/28/24 07:17 Respiratory Effort Normal, Non-Labored 10/27/24 15:46 Respiratory Depth Normal 10/27/24 15:46 Respiratory Pattern Normal 10/27/24 15:46 Blood Pressure 143/72 H 10/28/24 07:17 Blood Pressure Mean 95 10/28/24 07:17 Pulse Oximetry 94 10/28/24 07:17 Oxygen Delivery Method Room Air 10/28/24 07:17 Oxygen Flow Rate 0 10/28/24 07:17 Pain Level 0 10/28/24 07:17 Intake & Output 10/27/24 10/28/24 10/28/24 17:59 05:59 17:59 Intake Total 250 / 250 510 / 760 200 / 200 Output Total 900 / 900 900 / 900 Balance 250 / 250 -390 / -140 -700 / -700 Weight 134 lb 8 oz Intake: IV 250 / 250 10 / 260 Oral 500 / 500 200 / 200 Output: Urine 900 / 900 900 / 900 Other: Urine Color Yellow Pale Urine Appearance Clear Clear Clear Urine Odor Normal Normal Comment pt went to bathroom independently Data Completed and Pending Labs on day of discharge: Labs from last 24 hours 10/28/24 10/27/24 10/27/24 06:08 18:55 16:15 WBC 4.51 RBC 4.51 Hgb 13.7 Hct 40.7 MCV 90 MCH 30.4 MCHC 33.7 RDW 12.0 Plt Count 228 MPV 10.1 Immature Gran % Neutrophils % Lymphocytes % Monocytes % Eosinophils % Basophils % Nucleated RBC % Absolute Neutrophils Absolute Lymphocytes Absolute Monocytes Absolute Eosinophils Absolute Basophils APTT Sodium 142 Potassium 4.0 Chloride 107 Carbon Dioxide 26.4 Anion Gap 8.6 BUN 14 Creatinine 0.5 L Est GFR (CKD-EPI 2020) 102.73 Glucose 106 Calcium 9.1 Magnesium 2.3 Total Bilirubin AST ALT Alkaline Phosphatase Troponin I 5 5 6 Total Protein Albumin 10/27/24 10/27/24 10/27/24 13:41 11:29 10:57 WBC RBC Hgb Hct MCV MCH MCHC RDW Plt Count MPV Immature Gran % Neutrophils % Lymphocytes % Monocytes % Eosinophils % Basophils % Nucleated RBC % Absolute Neutrophils Absolute Lymphocytes Absolute Monocytes Absolute Eosinophils Absolute Basophils APTT 24.5 Sodium Potassium Chloride Carbon Dioxide Anion Gap BUN Creatinine Est GFR (CKD-EPI 2020) Glucose Calcium Magnesium Total Bilirubin AST ALT Alkaline Phosphatase Troponin I 5 7 Total Protein Albumin 10/27/24 10:32 WBC 3.79 L RBC 4.82 Hgb 15.1 Hct 43.6 MCV 91 MCH 31.3 MCHC 34.6 RDW 11.9 Plt Count 239 MPV 10.1 Immature Gran % 0.3 Neutrophils % 49.8 Lymphocytes % 38.3 Monocytes % 8.7 Eosinophils % 2.1 Basophils % 0.8 Nucleated RBC % 0.0 Absolute Neutrophils 1.89 Absolute Lymphocytes 1.45 Absolute Monocytes 0.33 Absolute Eosinophils 0.08 Absolute Basophils 0.03 APTT Cancelled Sodium 142 Potassium 4.0 Chloride 105 Carbon Dioxide 26.5 Anion Gap 10.5 BUN 16 Creatinine 0.6 Est GFR (CKD-EPI 2020) 98.32 Glucose 109 H Calcium 9.3 Magnesium 2.2 Total Bilirubin 0.3 AST 16 ALT 37 Alkaline Phosphatase 76 Troponin I 4 Total Protein 7.3 Albumin 4.3 PFSH All Active Problems (Updated 10/28/24 @ 09:00 by Jean Rob MD) Chest pain (Acute) Lateral epicondylitis, left elbow (Acute) Environmental allergies (Acute) Eczema (Acute) Trigger finger of right hand (Acute) RRF RMF Trigger finger of left hand (Acute) LLF Depo-medrol injection: 05/21/23 Osteoarthritis (Chronic) bilateral hands Hyperlipidemia (Acute) 08/2021 Acquired kyphosis (Acute) Bereavement due to life event (Acute 03/29/02) son killed in MVA Mitral valve regurgitation (Acute 03/29/84) Mucous polyp of cervix (Acute) Sleep disorder (Acute 12/29/15) Uterine leiomyoma (Acute) Medical History COVID-19 (~08/22/21) 08/22/21-URI Serrated adenoma of colon [id number] adenoma and tubular adenoma, due 2024 History of postoperative nausea and vomiting Mitral valve regurgitation Chest pain neg. stress echo 01/17 Cyst of Bartholin's gland duct removed Microscopic hematuria (01/31/16) Pap smear vag w ASC-US (03/29/02) neg. HPV Surgical History Trigger finger, left little finger S/P Release: 05/07/2023 History of gastrointestinal surgery mass found on colonoscopy removed at [facility] 2007 H/O eye surgery bilat, at [facility] ohth. about 2018 Colonoscopy - MAC (04/09/17) Biopsy of breast Family History Mother , AGE 89 Hyperlipidemia Skin cancer Dementia Father , AGE 85 Stroke Prostate cancer Brother Skin cancer Maternal Grandfather No problems noted. Paternal Grandfather Diabetes Stroke Maternal Grandmother Stroke Paternal Grandmother No problems noted. Brother No problems noted. Son , AGE 20 MVA No problems noted. Daughter No problems noted. Social History Smoking/Tobacco Use Status: Never Second Hand Exposure: Yes Smoking risk assessment performed?: Yes Alcohol Intake: current Alcohol Intake frequency: a few times a week Alcohol type: wine Drug use: Never Substance use type: does not use Caregiver/Support person: No Household members: spouse Housing: house Communication Needs: None Do you need help understanding health information?: Never current occupation: retired banker Pets and animals: No Sexually active: Yes Do you think of yourself as: straight/heterosexual Current gender identity: female What is your relationship status?: How often do you talk on the phone with friends or family?: three or more times per week How often do you get together with friends or relatives?: once per week How often do you attend mormon or baptism services?: 4 or more times per year Do you belong to any clubs or organized social groups?: no Panel score (0-1 are the most socially isolated patients): 3 What type of physical activity do you participate in: walking and yoga Duration: 45-60 minutes/day Frequency: 1-2 times per week Harriett/Mandaeism: Samaritan Special harriett needs: No Do you feel safe at home: Yes Do you feel safe in your relationship?: Yes Time Spent with Patient Time Spent with Patient: <45 minutes Time was spent: preparing to see the patient(eg.review tests), obtaining and/or reviewing separately otained hiistory, ordering medications,tests, procedures, referring, communicating with other health director critical care, indepentently interpreting results, counseling the patient and care coordination
--- NOTE | 2024-10-28 10:42 | PDOC.CMDIS ---
Date of service: 10/28/24 Time of Service: 10:43 LACE Index Scoring Tool Questions: Length of Stay (in days): 1 Was the patient admitted via the E.D.?: Yes E.D. Visits: 1 Answers: Total Score: 5 Risk of Readmission: Low Risk Care Management Discharge Plan Reason for Hospitalization: Atypical chest pain Discharge Plan: Milka will discharge home today. She will follow up with her community providers and continue per her plan of care. Milka will transport home by her . Patient/Family Education Needs: Review discharge instructions, activity, limitations, and plan of care. Discuss Ask Me Three.
== END 2024-10-28 10:47 | disposition home or self-care (01) ==
LOC: ER 14:13 → MS 15:40
PROVIDERS: Admitting Provider Family Medicine; Emergency Provider Student in an Organized Health Care Education/Training Program; PCP Family Medicine; Responsible Provider Family Medicine; Visit Provider Family Medicine
DX: R07.89 Other chest pain (principal); E78.5 Hyperlipidemia, unspecified; R20.2 Paresthesia of skin; M77.12 Lateral epicondylitis, left elbow; L30.9 Dermatitis, unspecified; I34.0 Nonrheumatic mitral (valve) insufficiency
CPT/HCPCS: 00123; 36415; 71275; 80048; 80053; 85027; 93005; 99285; 71045; 74174; 83735; 84484; 85025; 85730; 93010; 99223; 99239; G0378; J3490

== ENCOUNTER 2024-11-03 02:29 | Outpatient (CLI) | payer MEDICARE, SELFPAY ==
--- NOTE | 2024-11-03 07:30 | DI.NM_ITS ---
APPROVED REPORT Exam: Exercise Treadmill Patient Location: Out-Patient Room/Bed: Stress Nurse: Leola Saba RN, Sheela Leroy RN Ordering Provider:MARYANN ZAMAN, Contact Number: [phone] BMI: 23.73 Baseline Rhythm: Sinus Bradycardia Indications: atypical chest pain Medical History Medical History: HLD, mitral valve regurgitation, COVID-19 Cardiac Medications: zyrtec Allergies: prednisone,penicillins, honey bee venom, oxycodone, codiene, hydrocodone, meperidine, tramadol Cardiac Risk Factors: HLD Previous Cardiac Procedures: none Pretest Chest Pain Characteristics: No chest pain Exercise History: Physically active Physical Disabilities: none Lung Sounds: Clear to auscultation Heart Sounds: Regular Stress Test Details Test: Exercise stress testing was performed using a Tan protocol. Nuclear Acquisition: Rest Tc-99m/Stress Tc-99m 1 day Rest Isotope: Tc-99m Sestamibi. Dose: 10 Date: 11/03/2024 Injection Time: 11:00 Stress Isotope: Tc-99m Sestamibi. Dose: 30 Date: 11/03/2024 Injection Time: 13:27 HR Resting HR Supine: 58 bpm Max Heart Rate (APMHR): 153 bpm Resting HR Standin bpm Target HR (85% APMHR): 130 bpm Max HR Achieved: 154 bpm % of APMHR: 101 Recovery HR: 75 bpm HR response to stress: Normal HR response to stress BP Resting BP Supine: 124/80 mmHg Resting BP Standin/84 mmHg Max BP: 188/84 mmHg Recovery BP: 124/78 mmHg BP response to stress: Normal blood pressure response to stress. ECG Resting ECG: Sinus Bradycardia Stress ECG: Sinus Tachycardia ST Change: No significant ST segment changes noted Arrhythmia: none Recovery ECG: Sinus Rhythm Recovery ST Change: No significant ST segment changes noted Recovery Arrhythmia: rare PAC Clinical Reason for Termination: 100%max HR achieved, MOD SOB Stress Symptoms: MOD SOB Exercise duration: 10 min04 sec Highest Stage Reached: Stage 4: 4.2 mph at 16% grade. Exercise capacity: 11.93 METs Angina Score: None Mcfadden Treadmill Score: 9.1 Rate Pressure Product: 18710 Stress ECG Conclusion 1. Resting electrocardiogram showed voltage for left ventricular hypertrophy, minor nondiagnostic ST abnormalities 2. Patient exercised on the Tan protocol and completed a workload of 12 METS 3. Normal heart rate and blood pressure response to exercise. The patient achieved 100% of maximal predicted heart rate for age 4. The electrocardiographic portion of the test did not demonstrate significant myocardial ischemia 5. See MPI report Mcfadden Treadmill Score is 9.1 which is Low risk. Stress Test Summary STAGE Time (mins) Speed (mph) Grade (%) HR BP SpO2 SYMPTOMS METS Supine 58 124/80 96 Standing 64 138/84 1 3 1.7 10 102 160/76 97 MOD SOB 4.5 2 6 2.5 12 113 174/78 95 SOB 7 3 9 3.4 14 124 188/84 100 MOD SOB 10 4 12 4.2 16 154 lightheaded 13 1 min recovery 154 152/78 3 min recovery 77 132/76 98 6 min recovery 75 124/78 98 treadmill stopped due to patient reaching 100%target HR. Patient complained of MOD SOB during exercise as well as lightheadedness at beginning of recovery. All symptoms resolved at end of test. Patient left ambulatory in no apparent distress. MPI Conclusion Myocardial perfusion is normal. There is no ischemia or evidence of prior infarction Ejection fraction is 72% with normal wall motion
== END 2024-11-03 02:49 ==
LOC: DI 02:30
PROVIDERS: PCP Family Medicine; Visit Provider Internal Medicine Cardiovascular Disease
DX: R07.9 Chest pain, unspecified (principal)
CPT/HCPCS: 78452; 93016; 93018; 93017

== ENCOUNTER 2025-02-12 05:46 | Outpatient (CLI) | payer MEDICARE, SELFPAY ==
--- NOTE | 2025-02-12 07:00 | DI.MAMMO_ITS ---
Exam(s) MAMMO SCREENING EXAM: MAMMO SCREENING CLINICAL HISTORY: screening,z12.39 TECHNIQUE: Mammograms were interpreted according to the usual protocol including computer analysis with CAD system, tomosynthesis and C-view imaging. COMPARISON: 2016 and 2016 FINDINGS: The breasts are composed of heterogeneously dense fibroglandular densities, Breast Density category C. No suspicious masses or suspicious microcalcifications are seen. Scarring is noted at the inferior left breast related to previous biopsy. No skin thickening or abnormal axillary lymph nodes are seen. There has been no significant change from prior exams. IMPRESSION: BI-RADS Category 1, Negative mammogram. Yearly screening mammography is recommended. Breast Density: Category C - The breasts are heterogeneously dense, which may obscure small masses. Breast density Category C or D implies that the patient has dense breast tissue. Dense breast tissue can make it harder to find cancer on a mammogram. Dense breast tissue is also associated with an increased risk of breast cancer. This information about the result of the mammogram report was provided to the patient to raise their awareness. Use this report when you speak with the patient about their risks for breast cancer, which includes their family history. At that time, you may recommend additional screening tests (Ultrasound or MRI) as these tests may add significant information. A negative radiographic report should not delay biopsy if a dominant or clinically suspicious mass is present. Up to ten percent of cancers are not identified on mammography. A negative report may reinforce clinical impression. Adenosis and dense breasts may obscure an underlying neoplasm. False positive reports average 6 to 10%.
--- NOTE | 2025-02-12 07:00 | DI.DEXA_ITS ---
Exam(s) XR DEXA BONE DENSITY W/WO SHANDA EXAM: XR DEXA BONE DENSITY W/WO SHANDA CLINICAL HISTORY: Annual exam,menopausal disorder,n95.9 TECHNIQUE: [facility] [facility] Horizon C densitometer analysis of left hip, lumbar spine and right forearm. Lateral survey image of the thoracic and lumbar spine. COMPARISON: MR MRI - LUMBAR SPINE WO CONTRAST from 02/09/2012 FINDINGS: Lateral view of the thoracic and lumbar spine shows no evidence of compression fractures. Bone mineral density measurements of the lumbar spine correspond to a total T- score of -2.6 , in the mildly osteoporotic range. Bone mineral density measurements of the left hip correspond to a total T-score of -2.1. The femoral neck T-score is -3.1, in the osteoporotic range. Theright forearm bone mineral density measurements correspond to a T-score of the distal 3rd of -2.6, in the osteoporotic range. IMPRESSION: Osteoporosis of the spine, hip and forearm.
== END 2025-02-12 06:06 ==
LOC: DI 05:46
PROVIDERS: PCP Family Medicine; Visit Provider Family Medicine
DX: Z12.31 Encounter for screening mammogram for malignant neoplasm of breast (principal); N95.9 Unspecified menopausal and perimenopausal disorder; R92.323 Mammographic fibroglandular density, bilateral breasts
CPT/HCPCS: 77063; 77067; 77080

== ENCOUNTER 2025-02-13 04:13 | Outpatient (CLI) | payer MEDICARE, SELFPAY ==
[2025-02-13 13:46] LABS: ALT 36 U/L (14-59); AST 14 U/L (15-37); Albumin 4.1 g/dL (3.4-5.0); Alkaline Phosphatase 76 U/L (46-116); Anion Gap 8.8 mmol/L (3-11); BUN 12 mg/dL (7-18); Bilirubin, Total 0.3 mg/dL (0.2-1.0); CO2 28.2 mmol/L (21.0-32.0); Calcium 9.1 mg/dL (8.5-10.1); Chloride 101 mmol/L (98-107); Estimated GFR 94.73 (mL/min/1.73m2); Glucose 112 mg/dL (74-106); Potassium 3.8 mmol/L (3.5-5.1); Sodium 138 mmol/L (136-145); Total Protein 7.3 g/dL (6.4-8.2); Vitamin D 25 Total 55 ng/mL (30-100)
== END 2025-02-13 04:14 | disposition home or self-care (01) ==
LOC: LBO 04:13
PROVIDERS: PCP Family Medicine; Visit Provider Family Medicine
DX: M81.0 Age-related osteoporosis without current pathological fracture (principal)
CPT/HCPCS: 36415; 80053; 82306

== ENCOUNTER → 2025-03-09 11:17 | Outpatient (CLI) | payer MEDICARE, SELFPAY ==
--- NOTE | 2025-03-09 11:00 | DI.RAD_ITS ---
Exam(s) XR LUMBAR SPINE COMPLETE EXAM: XR LUMBAR SPINE COMPLETE CLINICAL HISTORY: M54.50,G89.29 low back pain w/o sciatica , chronic pain. TECHNIQUE: 2D digital imaging was performed. Five views. COMPARISON: CR XR DEXA BONE DENSITY W/WO SHANDA from 02/12/2025 FINDINGS: BONES: No fracture or destructive lesion. Vertebral body heights are maintained. There are small endplate osteophytes. There are facet degenerative changes at L4-5 causing mild spondylolisthesis. DISKS: There is mild narrowing of the L3-4 disc space posteriorly. There is mild narrowing of the L2-3 disc space. There is moderate narrowing of the L5-S1 disc space. The remaining intervertebral disc spaces are maintained. ALIGNMENT: Mild degenerative dextroscoliosis. Mild degenerative L4-5 spondylolisthesis. SOFT TISSUE: Calcification in the abdominal aorta. IMPRESSION: Degenerative disc changes greatest at L5-S1. Facet degenerative changes greatest at L4-5. DATA REPOSITORY: RADIATION DOSE DELIVERED:
== END ==
LOC: DI 11:18
PROVIDERS: PCP Family Medicine; Visit Provider Family Medicine
DX: M47.816 Spondylosis without myelopathy or radiculopathy, lumbar region (principal)
CPT/HCPCS: 72110

== ENCOUNTER 2025-03-17 03:16 | Outpatient (RCR) | payer MEDICARE, SELFPAY ==
[2025-03-17] MEDS: Denosumab 60 MG/ML SYR SC (09:16)
== END 2025-03-29 23:59 | disposition home or self-care (01) ==
LOC: INF 03:16
PROVIDERS: PCP Family Medicine; Visit Provider Family Medicine
DX: M81.0 Age-related osteoporosis without current pathological fracture (principal)
CPT/HCPCS: 96372; J0897